=== PATIENT | male | born 1950 | race Caucasian/White ===

== ENCOUNTER 2020-08-09 18:08 | Inpatient (IN) ==
[2020-08-09] MEDS ORDERED: methylPREDNISolone 125 MG/2 ML VIAL IV STA (18:41)
[2020-08-09] MEDS ORDERED: diphenhydrAMINE Capsule 25 MG CAP PO ONE (18:41)
--- NOTE | 2020-08-09 18:41 | Emergency Department Note ---
History of Present Illness General Chief complaint: Referred by Doctor Stated complaint: yesterday monika fisher Time Seen by Provider: 08/09/20 18:16 Source: patient History of Present Illness Provider complaint: Stroke symptoms Onset (ago): hour(s) Location: eyes, lower extremity (Left only), left and right Pain Consistency: + constant Quality: + other (Loss of visual field in both eyes on the right side and weakness to the left leg now resolved) Relieved By: + none Exacerbated By: + none Associated symptoms: + headaches (Very mild); no chest pain, no cough, no fever/chills, no nausea/vomiting and no shortness of breath This is a 70-year-old male who presents with strokelike symptoms since 6:30 PM yesterday. The patient was at a gas station and when he got out of his car he noticed that his left lower leg felt floppy and weak. This only lasted about a minute and then went away. At the same time he developed issues with his memory which was also temporary but not as short lived. This morning woke up at approximately 8 AM and developed loss of vision on the right side of his visual aranda. He went to his eye doctor to evaluate for possible retinal tear and was told that he had the visual loss in both eyes on the right visual field and had no signs of a problem with his eyes or retina. He was sent here for further evaluation. He denies trouble with his speech, gait, recurrent weakness in his extremities, numbness in his extremities, difficulty swallowing or vertigo. He does have a mild headache but attributes it to the stress of the situation. He is on Plavix and aspirin for cardiac disease and cardiac stent. He has never had a stroke or TIA in the past. He denies any fever, cough or cold symptoms, known exposure to COVID-19, chest pain, shortness breath, abdominal pain, vomiting, diarrhea or urinary symptoms. Home Medications Medication Instructions Recorded Confirmed Type atorvastatin 40 mg tablet 40 mg PO HS tab 03/29/19 08/09/20 History benazepril 40 mg tablet 40 mg PO QAM tab 03/29/19 08/09/20 History metoprolol succinate 100 mg See Rx Instructions .ROUTE 03/29/19 08/09/20 History tablet,extended release 24 hr .COMPLEX tab niacin 500 mg tablet,extended 500 mg PO HS #1 tab 03/29/19 08/09/20 History release clopidogrel 75 mg tablet 75 mg PO QAM tab 05/21/19 08/09/20 History nitroglycerin 0.4 mg sublingual 0.4 mg SL Q5M PRN #25 tab 06/03/20 08/09/20 Rx tablet aspirin [Aspir-81] 81 mg PO HS 08/09/20 08/09/20 History Allergies Allergy/AdvReac Type Severity Reaction Status Date / Time Iodinated Contrast Media Allergy Intermediate Hives Verified 08/09/20 18:45 [Iodinated Contrast- Oral and IV Dye] iodine Allergy Unknown Verified 08/09/20 18:45 Penicillins AdvReac Unknown "not sure Verified 08/09/20 18:45 if he is allergic to it" Past Med/Surg History Medical History (Updated 08/09/20 @ 22:07 by Sarah Kelley DO) CAD (coronary artery disease) S/P [place] 2002 tx with one stent. S/P CABG 2007 [facility]. Gall bladder pain CURRENT ISSUE History of tachycardia Hx of small bowel obstruction NON SURGICAL INTERVENTION - 5 YR AGO Hyperlipidemia Hypertension Surgical History History of colonoscopy Hx of cardiac cath [facility] 2002; X1 STENT Hx of hand surgery RIGHT Hx of heart bypass surgery 3 VESSELS; [facility] 2007 Family History Mother Family history of diabetes mellitus Family/Other Family history of diabetes mellitus Social History Smoking Status: Never smoker Second Hand Exposure: No; Hx Alcohol Use: Yes Alcohol type: beer Hx Substance Use: No Preferred Language: Urdu Beliefs That Will Affect Care: None Current Living Situation: Spouse Feels Safe at Home: Yes Assistive Devices: Glasses Review of Systems See HPI for pertinent positives & negatives. and A total of 10 systems reviewed and were otherwise negative Physical Exam Vital Signs Vital Signs - 24 hr 08/09/20 18:09 08/09/20 19:33 08/09/20 20:44 Temperature 36.4 C L Temperature Source Temporal Artery Scan Pulse Rate 64 Pulse Rate [Apical] 70 63 Pulse Rate from SpO2 Sensor Respiratory Rate 18 14 12 Respiratory Effort / Characteristics Non-Labored Spontaneous Respiratory Depth Normal Blood Pressure 192/121 H Blood Pressure [Right Arm] 158/82 H 128/68 Blood Pressure Mean 144 Blood Pressure Mean [Right Arm] 107 88 Blood Pressure Position [Right Arm] Lying Pulse Oximetry 97 96 Oxygen Delivery Method Room Air Room Air Room Air Sepsis Recent Fever Within 48 Hours No Sepsis New/Unexplained Change in Mental Status No Sepsis Action Taken by Nursing No Action Required 08/09/20 21:30 Temperature Temperature Source Pulse Rate 63 Pulse Rate [Apical] Pulse Rate from SpO2 Sensor 62 Respiratory Rate 18 Respiratory Effort / Characteristics Respiratory Depth Blood Pressure 115/56 L Blood Pressure [Right Arm] Blood Pressure Mean 75 Blood Pressure Mean [Right Arm] Blood Pressure Position [Right Arm] Pulse Oximetry 95 Oxygen Delivery Method Room Air Sepsis Recent Fever Within 48 Hours Sepsis New/Unexplained Change in Mental Status Sepsis Action Taken by Nursing Constitutional: Vital signs reviewed. Eyes: Pupils are dilated bilaterally. Conjunctiva are noninjected. ENT: Pharynx is clear without erythema or exudate. Mucous membranes are moist. Neck supple without meningeal signs. Respiratory: Clear to auscultation bilaterally. Breath sounds are equal bilaterally. Cardiovascular: Regular rate and rhythm. No rubs or gallops. GI: Soft, nondistended and nontender. Bowel sounds are present. Musculoskeletal: No peripheral edema. No lower extremity tenderness. Integumentary: No cyanosis. or jaundice. Neurologic: The patient is awake and alert. Cranial nerves II-XII are intact, although unable to evaluate pupillary light reaction secondary to mydriasis induced by medication. Motor is 5 out of 5 all extremities. Sensation is intact to light touch all extremities. Normal speech. No pronator drift. No limb ataxia.. No dysdiadochokinesis. Normal gait. Visual aranda were tested by confrontation. He does have a right homonymous hemianopsia. Psychiatric: Normal affect. Not anxious appearing. Course Administered Medications Discontinued Medications Diphenhydramine HCl (Diphenhydramine Capsule 25 Mg Cap) 50 mg PO NOW ONE Stop: 08/09/20 18:42 Last Admin: 08/09/20 19:30 Dose: 50 mg Documented by: [id number] Ioversol (Optiray 320 125ml) 110 ml IV ONCE ONE Stop: 08/09/20 19:54 Last Admin: 08/09/20 19:55 Dose: 110 ml Documented by: [id number] Methylprednisolone (Methylprednisolone 125 Mg/2 Ml Vial) 125 mg IV NOW STA Stop: 08/09/20 18:42 Last Admin: 08/09/20 19:30 Dose: 125 mg Documented by: [id number] Medical Decision Making Differential Diagnosis TIA, stroke, intracranial mass, intracranial hemorrhage, retinal detachment Medical Records Attestation: I reviewed the patient's medical records. I did perform a limited focused review of portions of the patient's old chart on the electronic medical record. The patient has had no recent pertinent visits to this hospital. Home Medications Current Medication List: was personally reviewed by me Laboratory Data Attestation: I reviewed the patient's lab results. Result diagrams: 08/09/20 18:42 08/09/20 18:42 Lab Results 08/09/20 08/09/20 08/09/20 Range/Units 18:40 18:42 18:42 WBC 8.23 (4.8-10.8) K/uL RBC 5.14 (4.7-6.1) M/uL Hgb 17.2 (14.0-18.0) g/dL Hct 48.3 (42-52) % MCV 94.0 (80-100) fL MCH 33.5 (25-34) pg MCHC 35.6 (32-36) g/dL RDW Std Deviation 42.8 (36.4-46.3) fL RDW Coeff of Eleonora 12.4 (11.5-14.5) % Plt Count 182 (130-400) K/uL MPV 9.9 (7.4-10.4) fL Immature Gran % (Auto) 0.2 % Neut % (Auto) 78.0 % Lymph % (Auto) 14.9 % [place] % (Auto) 6.4 % Eos % (Auto) 0.4 % Baso % (Auto) 0.1 % Neut # (Auto) 6.41 (1.4-6.5) K/uL Lymph # (Auto) 1.23 (1.2-3.4) K/uL [place] # (Auto) 0.53 (0.11-0.59) K/uL Eos # (Auto) 0.03 (0-0.5) K/uL Baso # (Auto) 0.01 (0-0.2) K/uL Immature Gran # (Auto) 0.02 (0.00-0.02) K/uL PT 10.8 (9.0-12.0) Seconds INR 1.1 (0.9-1.1) APTT 23.4 (21.0-31.0) Seconds PTT Ratio 0.9 Sodium (136-145) mmol/L Potassium (3.5-5.1) mmol/L Chloride (98-107) mmol/L Carbon Dioxide (21-32) mmol/L Anion Gap (3-11) BUN (7-18) mg/dl Creatinine (0.6-1.4) mg/dl Est Cr Clr Drug Dosing ml/min Est GFR ( Amer) Est GFR (Non-Af Amer) BUN/Creatinine Ratio (10-20) Glucose (70-99) mg/dl POC Glucose 111 H (70-99) mg/dl Calcium (8.5-10.1) mg/dl Magnesium (1.8-2.4) mg/dl Total Bilirubin (0.2-1) mg/dl AST (15-37) U/L ALT (12-78) U/L Alkaline Phosphatase (45-117) U/L Troponin I (0-0.045) ng/ml Total Protein (6.4-8.2) gm/dl Albumin (3.4-5.0) gm/dl Globulin (2.5-4.0) gm/dl Albumin/Globulin Ratio (0.9-2) COVID-19 Eval Order SARS-CoV-2, RNA, NAAT (NEGATIVE) 08/09/20 08/09/20 08/09/20 Range/Units 18:42 19:45 19:45 WBC (4.8-10.8) K/uL RBC (4.7-6.1) M/uL Hgb (14.0-18.0) g/dL Hct (42-52) % MCV (80-100) fL MCH (25-34) pg MCHC (32-36) g/dL RDW Std Deviation (36.4-46.3) fL RDW Coeff of Eleonora (11.5-14.5) % Plt Count (130-400) K/uL MPV (7.4-10.4) fL Immature Gran % (Auto) % Neut % (Auto) % Lymph % (Auto) % [place] % (Auto) % Eos % (Auto) % Baso % (Auto) % Neut # (Auto) (1.4-6.5) K/uL Lymph # (Auto) (1.2-3.4) K/uL [place] # (Auto) (0.11-0.59) K/uL Eos # (Auto) (0-0.5) K/uL Baso # (Auto) (0-0.2) K/uL Immature Gran # (Auto) (0.00-0.02) K/uL PT (9.0-12.0) Seconds INR (0.9-1.1) APTT (21.0-31.0) Seconds PTT Ratio Sodium 142 (136-145) mmol/L Potassium 3.7 (3.5-5.1) mmol/L Chloride 110 H (98-107) mmol/L Carbon Dioxide 25 (21-32) mmol/L Anion Gap 7.0 (3-11) BUN 21 H (7-18) mg/dl Creatinine 1.30 (0.6-1.4) mg/dl Est Cr Clr Drug Dosing 53.6 ml/min Est GFR ( Amer) 64.5 Est GFR (Non-Af Amer) 55.7 BUN/Creatinine Ratio 16.0 (10-20) Glucose 108 H (70-99) mg/dl POC Glucose (70-99) mg/dl Calcium 9.1 (8.5-10.1) mg/dl Magnesium 2.2 (1.8-2.4) mg/dl Total Bilirubin 1.0 (0.2-1) mg/dl AST 29 (15-37) U/L ALT 40 (12-78) U/L Alkaline Phosphatase 72 (45-117) U/L Troponin I < 0.015 (0-0.045) ng/ml Total Protein 7.4 (6.4-8.2) gm/dl Albumin 4.3 (3.4-5.0) gm/dl Globulin 3.1 (2.5-4.0) gm/dl Albumin/Globulin Ratio 1.4 (0.9-2) COVID-19 Eval [facility] SARS-CoV-2, RNA, NAAT NEGATIVE (NEGATIVE) Imaging Data Radiologist's Impression: Preliminary Findings Only See Final Report For Complete Findings CT HEAD: Impression: There is acute infarct seen in the left occipital lobe, measuring up to 5.6 cm in length. No intracranial hemorrhage. Radiologist: Brice Wise MD Study ready at 20:15 and initial results transmitted at 20:17 Preliminary Findings Only See Final Report For Complete Findings CTA NECK: Impression: No acute arterial occlusion seen in the neck Severe C6/7 chronic degenerative disc disease. Radiologist: Brice Wise MD Study ready at 20:15 and initial results transmitted at 20:22 Preliminary Findings Only See Final Report For Complete Findings CTA HEAD: The posterior cerebral arteries are patent. No acute intracranial arterial occlusion. ECG Data Attestation: I personally reviewed and interpreted this ECG as follows: Indication: + other (Stroke symptoms) Rate (beats per minute): 68 Rhythm: + normal sinus ECG Bells: + Normal ECG ST segments: no T-wave inversions ECG Findings: no PVCs MDM Narrative I did evaluate the patient as noted above. The patient is presenting with strokelike symptoms. Yesterday he had weakness to the left lower leg. Today he woke up with a homonymous hemianopsia involving the right visual field. He is outside the window for IV TPA and so I did not call a stroke alert. IV access was established. I did place an order for continuous cardiac monitoring. The monitor showed normal sinus rhythm at a rate of 70 bpm. I did order and personally review the patient's 12-lead EKG as described above. There is no evidence of dysrhythmia or acute ischemia. I did order and review the patient's blood work as noted in the electronic medical record. His white blood cell count is within normal limits. Hemoglobin 17.2 platelets are 182. Electrolytes are unremarkable other than a chloride of 110. LFTs and troponin are within normal limits. I did premedicate the patient with IV Solu-Medrol and Benadryl. The patient has a allergy to IVP dye years ago. He understands the risk of allergic reaction and is agreeable after discussion of risks and benefits with him. I did order a CT of the head and CT angiogram of the head and neck. I did review the images myself as well as the radiology report as described above.CT angiogram of the head and neck does not show any evidence of acute arterial occlusion.He does have an acute infarct in the left occipital lobe measuring 5.6 cm. No intracranial hemorrhage. I did discuss the test results with the patient. He has no change in his symptoms. It is unclear what caused the transient "floppiness "of the left leg yesterday as he has no signs of right-sided infarct. He will be hospitalized for further care and evaluation. The case was discussed with the case consultant and the hospitalist. COVID-19 screening is negative. Impression & Plan Acute cerebrovascular accident (CVA), Homonymous hemianopsia due to recent cerebral infarction Discharge Plan Visit Data Chief Complaint: Referred by Doctor Stated Complaint: yesterday [facility] ED Provider: Dhiraj Boland Discharge Problem: Acute cerebrovascular accident (CVA), Homonymous hemianopsia due to recent cerebral infarction Patient Disposition: Admitted As Inpatient Discharge Instructions Interventions: ED Discharge Assessment Last Done: 08/09/20 22:24 Discharge Problem: Homonymous hemianopsia due to recent cerebral infarction Qualifiers: Laterality: right Qualified Code(s): I69.398 - Other sequelae of cerebral infarction
[2020-08-09 18:55] LABS: Basophils # (auto) 0.01 K/uL (0-0.2); Basophils % (auto) 0.1 %; Eosinophils # (auto) 0.03 K/uL (0-0.5); Eosinophils % (auto) 0.4 %; Hematocrit (blood only) 48.3 % (42-52); Hemoglobin 17.2 g/dL (14.0-18.0); Immature Granulocytes # (auto) 0.02 K/uL (0.00-0.02); Immature Granulocytes % (auto) 0.2 %; Lymphocytes # (auto) 1.23 K/uL (1.2-3.4); Lymphocytes % (auto) 14.9 %; Mean Corpuscular Hemoglobin 33.5 pg (25-34); Mean Corpuscular Hgb Conc 35.6 g/dL (32-36); Mean Platelet Volume 9.9 fL (7.4-10.4); Monocytes # (auto) 0.53 K/uL (0.11-0.59); Monocytes % (auto) 6.4 %; Neutrophils # (auto) 6.41 K/uL (1.4-6.5); Platelet Count 182 K/uL (130-400); RDW Coefficient of Variation 12.4 % (11.5-14.5); RDW Standard Deviation 42.8 fL (36.4-46.3); Red Blood Count 5.14 M/uL (4.7-6.1); White Blood Count 8.23 K/uL (4.8-10.8)
[2020-08-09 19:05] LABS: INR 1.1 (0.9-1.1); Partial Thromboplastin Ratio 0.9; Partial Thromboplastin Time 23.4 Seconds (21.0-31.0); Prothrombin Time 10.8 Seconds (9.0-12.0)
[2020-08-09 19:13] LABS: Alanine Aminotransferase 40 U/L (12-78); Albumin Level 4.3 gm/dl (3.4-5.0); Aspartate Aminotransferase 29 U/L (15-37); Blood Urea Nitrogen 21 mg/dl (7-18); Calcium 9.1 mg/dl (8.5-10.1); Carbon Dioxide 25 mmol/L (21-32); Chloride 110 mmol/L (98-107); Creatinine Clr Calc Pharmacy 53.6 ml/min; Est GFR (African American) 64.5; Est GFR (Non-African American) 55.7; Glucose 108 mg/dl (70-99); Magnesium 2.2 mg/dl (1.8-2.4); Potassium 3.7 mmol/L (3.5-5.1); Sodium 142 mmol/L (136-145)
[2020-08-09 19:18] LABS: Albumin Globulin Ratio 1.4 (0.9-2); Alkaline Phosphatase 72 U/L (45-117); Globulin 3.1 gm/dl (2.5-4.0); Total Protein 7.4 gm/dl (6.4-8.2); Troponin I < 0.015 ng/ml (0-0.045)
[2020-08-09] MEDS ORDERED: OPTIRAY 320 125ml IV ONE (19:53)
--- NOTE | 2020-08-09 22:08 | History & Physical Report ---
Date of Service August 09, 2020 Assessment & Plan (1) Acute cerebrovascular accident (CVA): 70 yo M PMHx HTN, HLD, CAD s/p CABG 2007 admitted for acute occipital region CVA without TPA administration. Acute left occipital CVA with residual right homonymous hemianopsia: Patient with acute CVA with symptoms starting at 630PM on 08/08. Did not qualify for TPA due to length of time from symptom onset. CT Head showed acute left occipital infarct measuring 5.6cm. CTA Head and Neck did not show acute findings/blockage that would account for CVA. 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 MRI Brain w/o contrast ordered for AM. Lipid panel, Hgb A1c, TTE in AM. Patient not having any difficulty swallowing so Heart Healthy diet okay to start now. Atorvastatin 80mg daily, continue DAPT. Allow for permissive HTN, goal BP <185/110 with labetalol 10mg IV q6h prn. Neuro consult placed. Telemetry for continuous cardiac monitoring and frequent Neuro checks. Unclear cause of description of transient left limb weakness/memory difficulties at 630PM on 08/08, no findings on CT/CTA imaging that would account for those symptoms. Hx contrast dye allergy: Has a history of contrast dye allergy causing hives. Patient was pre-medicated with methylprednisolone 125mg IV, Benadryl prior to CT imaging. Methylpred 125mg x1 for 12 hours post-imaging. Pepcid for H2 blockade. HTN: Allowing for permissive HTN given CVA. Hold home benazepril. Labetalol 10mg q6h prn BP > 185/110. HLD: Previously on atorvastatin 40mg daily. Transition to atorvastatin 80mg daily. CAD s/p CABG: Continue DAPT, high intensity statin. Benazepril and metoprolol held for permissive HTN, resume when able. Code Status: FULL CODE FEN/GI: Heart Healthy DVT ppx: hold chemoprophylaxis given risk of hemorrhagic conversion. SCDs Dispo: PCU for continous cardiac monitoring, frequent Neuro checks (2) Right homonymous hemianopsia due to recent cerebral infarction: (3) Hypertension: (4) Hyperlipidemia: (5) CAD (coronary artery disease): History of Present Illness Chief Complaint: right sided vision loss Primary Care Provider: Guille Jane, 70 yo M PMHx HTN, HLD, CAD s/p CABG 2007 presented to ED for evaluation of right sided vision loss in both eyes. Symptoms started at 6:30PM 08/08 with description of transient memory issues and left leg "floppy" sensation. Went away after a few minutes. This AM woke up at 8AM with right visual field los in both eyes. Was seen by [employer] today and was urged to come to ER for further evaluation. In the ER evaluation included CT Head, CTA Head/Neck which showed left occipital lobe infarct. CTA showed patent vasculature of the head and neck. COVID 19 negative. Hyperglycemia to 110. On my interview patient reports no chest pain, SOB, nausea, dizziness, headache, abdominal pain, recent fevers or chills. Reports no difficulty swallowing, no limb weakness. Patient does not have a history of smoking. Allergies Allergy/AdvReac Type Severity Reaction Status Date / Time Iodinated Contrast Media Allergy Intermediate Hives Verified 08/09/20 18:45 [Iodinated Contrast- Oral and IV Dye] iodine Allergy Unknown Verified 08/09/20 18:45 Penicillins AdvReac Unknown "not sure Verified 08/09/20 18:45 if he is allergic to it" Home Medications Medication Instructions Recorded Confirmed Type atorvastatin 40 mg tablet 40 mg PO HS tab 03/29/19 08/09/20 History benazepril 40 mg tablet 40 mg PO QAM tab 03/29/19 08/09/20 History metoprolol succinate 100 mg See Rx Instructions .ROUTE 03/29/19 08/09/20 History tablet,extended release 24 hr .COMPLEX tab niacin 500 mg tablet,extended 500 mg PO HS #1 tab 03/29/19 08/09/20 History release clopidogrel 75 mg tablet 75 mg PO QAM tab 05/21/19 08/09/20 History nitroglycerin 0.4 mg sublingual 0.4 mg SL Q5M PRN #25 tab 06/03/20 08/09/20 Rx tablet aspirin 81 mg PO HS 08/09/20 08/09/20 History Past Med/Surg History Medical History (Updated 08/11/20 @ 00:04 by Background Daemon) CAD (coronary artery disease) S/P [place] tx with one stent. S/P CABG 2007 [facility]. 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 Hx of small bowel obstruction NON SURGICAL INTERVENTION - 5 YR AGO Hyperlipidemia Hypertension Surgical History History of colonoscopy Hx of cardiac cath [facility] 2002; X1 STENT Hx of hand surgery RIGHT Hx of heart bypass surgery 3 VESSELS; [facility] 2007 Family History Mother , in her 90s of heart disease Family history of diabetes mellitus Heart disease Family/Other Family history of diabetes mellitus Father , age 85 of complications of hydrocephalus Diabetes Social History (Updated 08/10/20 @ 11:11 by Henrry Ray MD) Smoking Status: Former smoker Years Smoked: 2; Number of Years Since Quit: 45; Second Hand Exposure: No; Hx Alcohol Use: Yes Alcohol type: beer Alcohol Intake Frequency Comment: 1-2 beers per week Hx Substance Use: No Preferred Language: Polish Communication Ability: Effective Moisture Conditioner Operator Required: No Beliefs That Will Affect Care: None Current Living Situation: Spouse current occupational status: employed 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 Feels Safe at Home: Yes Assistive Devices: Glasses Review of Systems Review of Systems: All systems reviewed & are unremarkable except as noted in HPI & below Constitutional: no fever, no chills and no malaise Respiratory: no cough and no dyspnea Cardiovascular: no chest pain, no palpitations and no edema Gastrointestinal: no abdominal pain, no constipation and no diarrhea/loose stools Physical Exam Constitutional: WD/WN, vitals as above Eyes: PERRL, exam notable for right homonymous hemianopia. ENMT: external ear and nose normal, oropharynx normal Neck: normal visual inspection Respiratory: normal respiratory effort, lungs clear to auscultation Cardiovascular: RRR, no murmur, no edema Gastrointestinal (Abdomen): normal bowel sounds, soft, nontender, no hepatosplenomegaly Musculoskeletal: no cyanosis or clubbing, extremities motor strength 5/5 Skin: no rashes, warm and dry Neurologic: AAOx3, normal speech. PERRLA, no nystagmus. Right homonymous hemianopia. Bilateral UE, LE, and face without sensory or motor deficits. DTRs normal. II- XII intact bilaterally. No pronator drift. No tremor. Psychiatric: A+Ox3, euthymic affect Results & Data Results & Data ([facility]) Vital Signs (Past 12 Hours) Vital Signs Temp Pulse Pulse Resp BP BP Pulse Ox 08/09/20 21:30 63 18 115/56 L 95 08/09/20 20:44 63 12 128/68 96 08/09/20 19:33 70 14 158/82 H 08/09/20 18:09 36.4 C L 64 18 192/121 H 97 Code Status & VTE Plan VTE Prophylaxis Plan VTE Prophylaxis will be ordered: Yes Supervising Physician Co-Signing Physician Notes Attending addendum: I have physically seen this patient, have supervised the medical residents activities, and agree with the H&P unless as otherwise noted. Assessment and Plan: Acute left occipital CVA/right homonymous hemianopsia- CTA head and neck negative Order MRI brain without contrast Stroke without TPA protocol order set Patient did reportedly have transient left leg weakness Consult PT/OT/speech/neurology Permissive hypertension Hyperlipidemia- Increasing atorvastatin from 40 to 80 mg daily Check a fasting lipid panel hemoglobin A1c CAD/status post CABG- Continue aspirin, benazepril, clopidogrel, metoprolol succinate and nitroglycerin sublingual as needed Remaining orders and notations as noted Resident Activity Tracking Resident Involvement: Resident Care Provided Care Provided: Adult Hospital Medicine
[2020-08-09] MEDS ORDERED: LABETALOL HCL IV 5 MG/ML 20ML IV PRN (22:25)
[2020-08-09] MEDS ORDERED: ONDANSETRON INJ 2 MG/ML 2 ML VIAL IV PRN (22:49)
[2020-08-09] MEDS ORDERED: PHARMACIST DISCHARGE MED REC CONSULT PRN (22:49)
[2020-08-09] MEDS ORDERED: FAMOTIDINE 20 MG TAB PO ONE (22:49)
[2020-08-09] MEDS ORDERED: NITROGLYCERIN SL 0.4 MG/TAB TAB SL PRN (22:49)
[2020-08-09] MEDS ORDERED: ACETAMINOPHEN 325 MG TAB PO PRN (22:49)
[2020-08-09] MEDS ORDERED: POLYETHYLENE (MIRALAX) 17 GM PACK PO PRN (22:49)
[2020-08-09] MEDS ORDERED: METOPROLOL SUCC 50MG EXT REL TAB PO SCH (23:00)
[2020-08-09] MEDS ORDERED: methylPREDNISolone 125 MG in SYRINGE 0 ML IV ONE (23:00)
--- NOTE | 2020-08-10 07:01 | Hospitalist Progress Note ---
Date of Service August 10, 2020 Assessment & Plan (1) Acute cerebrovascular accident (CVA): 70 yo M PMHx HTN, HLD, CAD s/p CABG 2007 admitted for acute occipital region CVA without TPA administration. Acute left occipital CVA with residual right homonymous hemianopsia: Patient with acute CVA with symptoms starting at 630PM on 08/08. Did not qualify for TPA due to length of time from symptom onset. CT Head showed acute left occipital infarct measuring 5.6cm. CTA Head and Neck did not show acute findings/blockage that would account for CVA. Bilateral SUPERVISOR CALIBRATION are patent per [employer]. MRI Brain w/o contrast ordered for AM. Lipid panel, Hgb A1c, TTE in AM. Patient not having any difficulty swallowing so Heart Healthy diet okay to start now. Atorvastatin 80mg daily, continue DAPT. Allow for permissive HTN, goal BP <185/110 with labetalol 10mg IV q6h prn. Neuro consult placed. Telemetry for continuous cardiac monitoring and frequent Neuro checks. Unclear cause of description of transient left limb weakness/memory difficulties at 630PM on 08/08, no findings on CT/CTA imaging that would account for those symptoms. Hx contrast dye allergy: Has a history of contrast dye allergy causing hives. Patient was pre-medicated with methylprednisolone 125mg IV, Benadryl prior to CT imaging. Methylpred 125mg x1 for 12 hours post-imaging. Pepcid for H2 blockade. HTN: Allowing for permissive HTN given CVA. Hold home benazepril. Labetalol 10mg q6h prn BP > 185/110. HLD: Previously on atorvastatin 40mg daily. Transition to atorvastatin 80mg daily. CAD s/p CABG: Continue DAPT, high intensity statin. Benazepril and metoprolol held for permissive HTN, resume when able. Code Status: FULL CODE FEN/GI: Heart Healthy DVT ppx: hold chemoprophylaxis given risk of hemorrhagic conversion. SCDs Dispo: PCU for continous cardiac monitoring, frequent Neuro checks (2) Right homonymous hemianopsia due to recent cerebral infarction: (3) Hypertension: (4) Hyperlipidemia: (5) CAD (coronary artery disease): Admission and Anticipated Discharge Date Admission Date: August 09, 2020 Results & Data Results & Data ([facility]) Vital Signs (Past 12 Hours) Vital Signs Temp Pulse Pulse Resp BP BP BP 08/10/20 03:59 36.9 C 59 L 16 124/70 08/09/20 22:54 37.2 C 59 L 17 130/72 08/09/20 22:49 68 08/09/20 22:00 67 19 125/59 L 08/09/20 21:30 63 18 115/56 L 08/09/20 20:44 63 12 128/68 08/09/20 19:33 70 14 158/82 H Pulse Ox 08/10/20 03:59 96 08/09/20 22:54 96 08/09/20 22:49 08/09/20 22:00 94 08/09/20 21:30 95 08/09/20 20:44 96 08/09/20 19:33
[2020-08-10 07:13] LABS: Hematocrit (blood only) 47.6 % (42-52); Hemoglobin 16.8 g/dL (14.0-18.0); Immature Granulocytes # (auto) 0.02 K/uL (0.00-0.02); Immature Granulocytes % (auto) 0.3 %; Lymphocytes # (auto) 0.36 K/uL (1.2-3.4); Lymphocytes % (auto) 5.3 %; Mean Corpuscular Hemoglobin 33.1 pg (25-34); Mean Corpuscular Hgb Conc 35.3 g/dL (32-36); Mean Corpuscular Volume 93.9 fL (80-100); Mean Platelet Volume 10.1 fL (7.4-10.4); Monocytes # (auto) 0.02 K/uL (0.11-0.59); Monocytes % (auto) 0.3 %; Neutrophils # (auto) 6.35 K/uL (1.4-6.5); Neutrophils % (auto) 94.1 %; Platelet Count 167 K/uL (130-400); RDW Coefficient of Variation 12.5 % (11.5-14.5); RDW Standard Deviation 42.7 fL (36.4-46.3); Red Blood Count 5.07 M/uL (4.7-6.1); White Blood Count 6.75 K/uL (4.8-10.8)
[2020-08-10 07:25] LABS: INR 1.1 (0.9-1.1); Prothrombin Time 10.9 Seconds (9.0-12.0)
[2020-08-10] MEDS ORDERED: methylPREDNISolone 125 MG/2 ML VIAL IV ONE (07:30)
[2020-08-10 07:35] LABS: BUN Creatinine Ratio 15.7 (10-20); Calcium 9.5 mg/dl (8.5-10.1); Creatinine Clr Calc Pharmacy 57.1 ml/min; Est GFR (African American) 69.7; Est GFR (Non-African American) 60.1; Potassium 4.4 mmol/L (3.5-5.1)
--- NOTE | 2020-08-10 07:56 | CT Scan Report ---
HEAD CT NONCONTRAST CT DOSE: HISTORY: hononymous hemianopsia (right VF) eval for stroke TECHNIQUE: Multiaxial CT images of the head were performed without the use of intravenous contrast. A utomated exposure control was utilized for this study. A dose lowering technique was utilized adheri ng to the principles of ALARA. Comparison: None. Findings: The paranasal sinuses and mastoid air cells are clear. The calvarium and skull base are int act. Left occipital lobe infarct measuring 5.6 cm in length. This is consistent with a LABORATORY IMMUNOLOGIST territory infarct. This appears to represent an acute to subacute infarct. Impression: An acute to subacute left LABORATORY IMMUNOLOGIST territory infarct. ACT 112: Negative or not required by law. Electronically signed by: David Martel M.D. 08/10/2020 7:55 AM
--- NOTE | 2020-08-10 08:10 | XCELERA ---
[id number] \\[email or web address]\[id number]_[id number]
--- NOTE | 2020-08-10 08:26 | CT Scan Report ---
CT angio neck with con, CT angio head w con CLINICAL HISTORY: 70 years-old Male with hononymous hemianopsia (right VF) eval for stroke. Acute subacute infarct of the left LOGISTICS SPECIALIST territory COMPARISON STUDY: Head CT of same day TECHNIQUE: Following the IV administration of 110 mL of Optiray 320, CT angiogram of the head and nec k was performed from the aortic arch to the skull apex. Images are reviewed in the axial, sagittal, a nd coronal planes. 3-D MIPS images are created and assessed. IV contrast was administered without com plication. All measurements were calculated based on NASCET criteria. A dose lowering technique was utilized adhering to the principles of ALARA. CT DOSE: 1211.32 mGy.cm FINDINGS: The imaged opacified pulmonary arterial tree is unremarkable. Atheromatous plaque of the th oracic aortic arch. Patency of the innominate and imaged subclavian arteries. Patent common carotid a rteries. Mixed plaque of the carotid bulbs and proximal internal carotid arteries results in less trina n 50% luminal narrowing bilaterally. Calcified plaque of the petrous and cavernous segments. The midd le and anterior cerebral arteries are patent. Codominant and patent vertebral arteries. Mild calcifie d plaque at the origin of the right vertebral artery. The basilar and right posterior cerebral arteri es are patent. There is occlusion at the origin of the left P2 segment, image 90 series 5. No venous sinuses are patent. Acute to subacute infarct of the left posterior cerebral artery territory. Prior median sternotomy. No pneumothorax. Unremarkable soft tissues. IMPRESSION: 1. Acute to subacute infarct of the left posterior cerebral artery territory with focal occlusion at the origin of the left P2 segment of the left posterior cerebral artery. This finding was called/faxe d to the floor at time of dictation. 2. Otherwise unremarkable CTA of the head and neck. ACT 112: Negative or not required by law. The above report was generated using voice recognition software. It may contain grammatical, syntax o r spelling errors. Electronically signed by: Mauricio Adamson M.D. 08/10/2020 8:24 AM
[2020-08-10] MEDS ORDERED: METOPROLOL SUCC 50MG EXT REL TAB PO SCH (09:00)
[2020-08-10] MEDS ORDERED: CLOPIDOGREL BISULFATE 75 MG TAB PO SCH (09:00)
[2020-08-10] MEDS ORDERED: ATORVASTATIN 40 MG TAB PO SCH (09:00)
--- NOTE | 2020-08-10 10:06 | Magnetic Resonance Report ---
MR brain wo con HISTORY: 70 years-old Male CVA acute strokelike symptoms COMPARISON: Head CT, CTA head and neck of same day TECHNIQUE: Multiplanar multisequence MRI of the brain was obtained without the use of IV contrast. FINDINGS: Acute infarct of the left posterior cerebral artery distribution within the left occipital and medial left temporal lobe redemonstrated which measures up to approximately 7.1 x 2.8 cm with decreased sig nal on ADC map and T1 series demonstrating increased T2/FLAIR signal. Cytotoxic edema results in loca l gyral expansion with sulcal effacement. No additional acute or subacute infarct. Senescent calcifications of the lentiform nuclei. No acute intracranial hemorrhage, midline shift, ab normal extra axial collection, hydrocephalus or intracranial mass identified. Mild patchy T2/FLAIR hy perintensities are noted within the subcortical white matter of the bilateral cerebral hemispheres, m ost pronounced posteriorly which may reflect chronic microvascular ischemic disease. Cerebral venous sinuses and major arterial flow voids appear patent. Mastoid air cells and paranasal sinuses are clear. The skull and soft tissues are unremarkable. Prior bilateral lens replacement. IMPRESSION: 1. Acute infarct (greater than 12 hours old) of the left posterior cerebral artery distribution with cytotoxic edema resulting in local gyral expansion and sulcal effacement. 2. No midline shift or intracranial hemorrhage. ACT 112: Negative or not required by law. The above report was generated using voice recognition software. It may contain grammatical, syntax o r spelling errors. Electronically signed by: Mauricio Adamson M.D. 08/10/2020 10:04 AM
--- NOTE | 2020-08-10 11:05 | Discharge Summary ---
Date of Service August 10, 2020 Admission HPI Per Admitting Provider 70 yo M PMHx HTN, HLD, CAD s/p CABG 2007 presented to ED for evaluation of right sided vision loss in both eyes. Symptoms started at 6:30PM 08/08 with description of transient memory issues and left leg "floppy" sensation. Went away after a few minutes. This AM woke up at 8AM with right visual field los in both eyes. Was seen by Funeral Arranger today and was urged to come to ER for further evaluation. In the ER evaluation included CT Head, CTA Head/Neck which showed left occipital lobe infarct. CTA showed patent vasculature of the head and neck. COVID 19 negative. Hyperglycemia to 110. On my interview patient reports no chest pain, SOB, nausea, dizziness, headache, abdominal pain, recent fevers or chills. Reports no difficulty swallowing, no limb weakness. Patient does not have a history of smoking. Admission Exam Per Admitting Provider Constitutional: WD/WN, vitals as above Eyes: PERRL, exam notable for right homonymous hemianopia. ENMT: external ear and nose normal, oropharynx normal Neck: normal visual inspection Respiratory: normal respiratory effort, lungs clear to auscultation Cardiovascular: RRR, no murmur, no edema Gastrointestinal (Abdomen): normal bowel sounds, soft, nontender, no hepatosplenomegaly Musculoskeletal: no cyanosis or clubbing, extremities motor strength 5/5 Skin: no rashes, warm and dry Neurologic: AAOx3, normal speech. PERRLA, no nystagmus. Right homonymous hemianopia. Bilateral UE, LE, and face without sensory or motor deficits. DTRs normal. II- XII intact bilaterally. No pronator drift. No tremor. Psychiatric: A+Ox3, euthymic affect Principal Diagnosis CVA Discharge Exam Constitutional WD/WN, vitals as above Eyes EOM intact bilaterally; no nystagmus right homonymous hemianopia Respiratory normal respiratory effort, lungs clear to auscultation Cardiovascular RRR, no murmur, no edema Gastrointestinal (Abdomen) normal bowel sounds, soft, nontender, no hepatosplenomegaly Musculoskeletal no cyanosis or clubbing, extremities motor strength 5/5 Skin no rashes, warm and dry Neurologic patellar DTR's 2+ bilat, sensation intact normal touch/pain/proprioception Coordination: normal [id number] test and normal Romberg test right homonymous hemianopia with preserved visual acuity, CNII-XII otherwise normal Discharge Data Allergies Allergy/AdvReac Type Severity Reaction Status Date / Time Iodinated Contrast Media Allergy Intermediate Hives Verified 08/09/20 18:45 [Iodinated Contrast- Oral and IV Dye] iodine Allergy Unknown Verified 08/09/20 18:45 Penicillins AdvReac Unknown "not sure Verified 08/09/20 18:45 if he is allergic to it" Consultations 08/09/20 20:34 ED Decision to Admit Stat 08/09/20 22:49 Consult Case Management - Discharge Planning Routine Consult Neurology Routine Ordered Studies 08/09/20 18:33 CT angio head w con Stat CT angio neck with con Stat CT head/brain wo con Stat 08/10/20 22:49 MR brain wo con Routine Hospital Course (1) Acute cerebrovascular accident (CVA): 70 yo M PMHx HTN, HLD, CAD s/p CABG 2007 admitted for acute occipital region CVA without TPA administration. Acute left occipital CVA with residual right homonymous hemianopsia: - right homonymous hemianopia with preserved visual acuity and otherwise non- focal neuro exam, symptoms persistent >24 hours, CT Head/CTA Head/CTA Neck/MRI brain showing L MOVING CONSULTANT distribution acute infarct w/o hemorrhage - Did not qualify for TPA due to length of time from symptom onset. - Lipid panel WNL, TTE w/o evidence for cardioembolic source - Neuro consulted: recommends close f/u and continuing with home DAPT regimen - continue Atorvastatin 40mg daily, continue DAPT (Aspirin/Plavix) - f/u with PCP, Ophthalmology and Neurology HTN: - BPs controlled while hospitalized w/o need for PRNs, continue home meds HLD: - Continue home Atorvastatin 40mg PO daily as above CAD s/p CABG: - Continue home DAPT, high intensity statin, benazepril, metoprolol (2) Right homonymous hemianopsia due to recent cerebral infarction: (3) Hypertension: (4) Hyperlipidemia: (5) CAD (coronary artery disease): Total Time Total Time Spent Total Time Spent (In Minutes): Less than 30 minutes Total Time Includes: Examination of the Patient, Discharge Planning, Medication Reconciliation and Communication With Other Providers Discharge Plan Discharge Items Patient Disposition: Home - Self-Care Reason For Visit: ACUTE CVA Discharge Diagnosis: Acute Left Occipital CVA Activity: Per Instructions section Non-emergency contact: Primary Care Provider and Neurologist Call non-emergency contact if: you have any medication questions and your symptoms worsen Follow-up/Referrals: Henrry Ray MD [Physician] - Guille Jane DO [Primary Care Provider] - Diet: Heart Healthy Addtl Attending Provider Instructions: You were admitted to [facility] on 08/09/2020 for acut right- sided vision loss due to a stroke. You had an extensive imaging evaluation of your head, neck and heart, which confirmed the stroke in the back of your brain; based on imaging, this stroke was due to a clot that blocked blood flow to the back of your brain. Our Neurologist was consulted and spoke more about this diagnosis with you. You will be discharged in stable condition on 08/10/2020. You should continue to take all of your scheduled medications. You should also follow up closely with a Neurologist to monitor your visual symptoms - while there is a chance that these symptoms will improve over time, it is too early to tell the chance of improvement at this point in time. As for the anxiety that you mentioned to us, we recommend that you follow up closely with your PCP to discuss further management of this. We sincerely hope that you experience significant improvement in your symptoms. It was a pleasure to help provide your care while you were hospitalized. [employer]nament[employer] Helper Provider Instructions: Risk Factors for Stroke: You can reduce your chances of stroke by working with your medical provider to adopt a healthy lifestyle. Some specific ways to lower your chance of stroke are: * If you are a smoker, now is the time to stop smoking cigarettes * If you are diabetic, improve the control of your blood sugars * Avoid excessive amounts of alcohol * Control high blood pressure * Lose weight if you are overweight * Be sure to lead an active lifestyle * Eat a healthy diet low in salt, cholesterol and fat You should know about other risk factors for stroke that you are unable to control. These include: * Age 55 years or older * Male gender * Certain racial groups: , or / * Family History of Stroke, Mini stroke or Heart Attack * Sickle Cell Disease Follow Up: It is important for you to keep your follow up appointments with your medical provider. Who to Call and When: Medical Emergencies: Call 911 immediately if you experience any of the following warning signs and symptoms of Stroke: * Sudden numbness or weakness of the face, arm or leg, especially on one side of the body * Sudden confusion, trouble speaking or understanding * Sudden trouble seeing in one or both eyes * Sudden trouble walking, dizziness, loss of balance or coordination * Sudden severe headache with no cause Do not delay calling 911 if you experience any warning signs or symptoms of a stroke. Delay in seeking medical attention may affect what treatments can be given to you. . Pending Studies at Discharge: No Stand-Alone Forms: Medications to Prevent Stroke, My [facility], Smoking Cessation Medications and DC Order Prescriptions: Continued nitroglycerin 0.4 mg tablet, sublingual 0.4 mg SL Q5M PRN (Reason: chest pain) Qty: 25 RF: 0 atorvastatin 40 mg tablet 40 mg PO HS RF: 0 niacin 500 mg tablet extended release 500 mg PO HS Qty: 1 RF: 0 benazepril 40 mg tablet 40 mg PO QAM RF: 0 metoprolol succinate 100 mg tablet extended release 24 hr See Rx Instructions .ROUTE .COMPLEX RF: 0 clopidogrel 75 mg tablet 75 mg PO QAM RF: 0 aspirin 81 mg Tablet,Delayed Release (Dr/Ec) 81 mg PO HS RF: 0 Discharge Orders: Discharge Order (Routine); Ordered 08/10/20 Ordered By: Aries Mosqueda Admission Data Admit Date/Time: 08/09/20 21:52 Attending Provider: Odell Wilson Admit Provider: Sarah Kelley Primary Care Provider: Guille Jnae Other Providers: Narinder Salmeron ; Henrry Ray Other Interventions: Discharge Summary Assessment (RN) Last Done: 08/10/20 14:25 Supervising Physician Co-Signing Physician Notes I personally examined the patient and verified all cortes points of history and exam, discussed case, and agree with decision making with Dr Mosqueda. Feeling about the same. Still has visual field deficits. Otherwise feeling okay and wants to go home. Discussed with neurology, input greatly appreciated. Vitals noted, in general he is awake and alert pleasant no distress. HEENT normocephalic atraumatic mucous membranes moist. Breathing unlabored no accessory muscle use good effort. Skin shows no rashes no pallor or icterus. See neurology exam for better detail on neuro deficits, fortunately he does not show things like a facial droop or motor or sensory weakness otherwise. Occipital CVAwith visual field defectsreally unfortunately he does not have any major changes we can make to modify risk. He has longstanding vascular disease and unfortunately I suspect that his MOVING CONSULTANT thrombosis was probably plaque rupture from a plaque that has been there longstanding. He is already on dual antiplatelets for his coronary disease, he is already on atorvastatin 40 with lipids adequately suppressed, and his blood pressures overall have been acceptable given the context of a stroke, and it does not sound like he is really running high otherwise either. Further in discussion of lifestyle that can be secondary risk reduction for vascular disease, as we discussed a Mediterranean diet and daily cardiovascular exercise, he notes that he would be "doing more of the same" suggesting he already eats pretty healthy and exercise regularly. He should have ongoing follow-up with his eye doctor as far as his visual field deficits, as well as ocular therapy if his eye doctor can facilitate if not certainly doing therapy through occupational therapy would likely be quite helpful. I also discussed "poor man's therapy" on how to try to work on his blind spots, which may help create new neural pathways, and at the very least would help him become keenly aware of where the blind spots are. Stable for home Otherwise as above. Resident Activity Tracking Resident Involvement: Resident Care Provided Care Provided: Adult Hospital Medicine
--- NOTE | 2020-08-10 11:19 | Neurology Consultation ---
Date of Consultation August 10, 2020 Assessment & Plan (1) Acute cerebrovascular accident (CVA): (2) Right homonymous hemianopsia due to recent cerebral infarction: (3) Hypertension: This patient suffered a left posterior cerebral artery (P2 segment) stroke of a rather large nature in the evening of August 08. Clinically he has some nonspecific memory issues ( which have improved) and a very significant /dense right homonymous hemianopsia. This stroke happened despite being on aspirin and Plavix and was likely ischemic in nature. Echocardiogram did not show any source of embolus and CT angiography of the head neck were otherwise unremarkable. Patient was significantly hyp ertensive on presentation to the emergency room but this has improved since admission. Recommendations: 1. Control blood pressure as you are doing, aiming for a mean arterial pressure of 95-100. 2. the patient's lipid parameters are quite controlled and I would continue him on the same dose of atorvastatin ( not a high dose candidate at this time). 3. increase activity as able. 4. Follow up with Ophthalmology as an outpatient. 5. continue 75 milligrams clopidogrel and 81 milligrams aspirin daily. 6. follow-up with Neurology in 2-3 weeks. Overall, I spent a total of 115 minutes with this case including review of records, review of CT and MRI films, direct evaluation the patient at bedside, and discussion of the case with the patient and RN at bedside and Dr. Wilson including differential diagnosis and treatment options. History of Present Illness Reason for Consultation: patient is a 70-year-old, who I was asked to see at the request of Dr. Sullivan, for neurologic consultation regarding stroke. Requesting Physician: Dr. Sullivan Attending Physician: Odell Wilson DO History of Present Illness this patient has a longstanding history of coronary artery disease, post stenting in 2002 and a 3 vessel coronary artery bypass graft in 2007. He is followed closely by Dr. Freire and has been on aspirin and Plavix for years. He has a history of hypertension on metoprolol and benazepril, and dyslipidemia on atorvastatin. he takes his medication regularly. The patient exercises regularly with walking. Patient was in his usual state of health when on the evening of August 08 around 6:30 p.m. he got out of the car at the [employer] to check his tires and noticed that his left leg was not controlled well from the knee down. It was somewhat weak and not responding to his direction but he did not fall. He felt the proximal leg was reasonable. He went in and sat back down in the car and felt that it lasted about 45 seconds. He had a little bit of double vision around that time for a minute or so also. He felt like he was "in a fog" but ended up driving home and going to bed at 7 p.m.. He woke up at 8 a.m. on August 09 and noted that he had some memory issues with names and he could not see well off to the right. Thinking that he had a detached retina ( like other family members have had ) he saw Dr. Mccain, who told him that he did not think there was any retinal issue and that he should go to the emergency room. Patient arrived to the emergency room August 09 at 1809 with a temperature of 36.4, pulse 60s and regular, respiratory 18, blood pressure 192/121, and O2 saturation 97 percent. Neurologic examination revealed decreased vision to the right. CBC and Chem profile were unremarkable. CT scan of the head showed an acute large left occipital CVA. I reviewed these films. CT angiography of the head and neck were unremarkable except there was a cutoff in the left P2 segment of the left posterior cerebral artery. MRI of the brain shows a rather large left posterior cerebral artery distribution stroke in the medial temporal and occipital head regions. The occipital pole was spared. I reviewed these films. The patient does not have any memory problems today and has no pain or headache. He has no double vision or speech problems. He has no weakness or numbness in the limbs and his balance is reasonable. This morning CBC and Chem profile were unremarkable and repeat blood pressure was 133/67. He has been in sinus rhythm in the 70s since admission with occasional PACs and a rare PVCs. Triglycerides were 45 and total cholesterol 130. hemoglobin A1c is pending. Allergies Allergy/AdvReac Type Severity Reaction Status Date / Time Iodinated Contrast Media Allergy Intermediate Hives Verified 08/09/20 18:45 [Iodinated Contrast- Oral and IV Dye] iodine Allergy Unknown Verified 08/09/20 18:45 Penicillins AdvReac Unknown "not sure Verified 08/09/20 18:45 if he is allergic to it" Home Medications Medication Instructions Recorded Confirmed Type atorvastatin 40 mg tablet 40 mg PO HS tab 03/29/19 08/09/20 History benazepril 40 mg tablet 40 mg PO QAM tab 03/29/19 08/09/20 History metoprolol succinate 100 mg See Rx Instructions .ROUTE 03/29/19 08/09/20 History tablet,extended release 24 hr .COMPLEX tab niacin 500 mg tablet,extended 500 mg PO HS #1 tab 03/29/19 08/09/20 History release clopidogrel 75 mg tablet 75 mg PO QAM tab 05/21/19 08/09/20 History nitroglycerin 0.4 mg sublingual 0.4 mg SL Q5M PRN #25 tab 06/03/20 08/09/20 Rx tablet aspirin [Aspir-81] 81 mg PO HS 08/09/20 08/09/20 History Patient History Medical History CAD (coronary artery disease) S/P DE 2002 tx with one stent. S/P CABG 2007 [facility]. Gall bladder pain CURRENT ISSUE History of tachycardia Hx of small bowel obstruction NON SURGICAL INTERVENTION - 5 YR AGO Hyperlipidemia Hypertension Surgical History History of colonoscopy Hx of cardiac cath [facility] 2002; X1 STENT Hx of hand surgery RIGHT Hx of heart bypass surgery 3 VESSELS; [facility] S[facility] 2007 Family History Mother , in her 90s of heart disease Family history of diabetes mellitus Heart disease Family/Other Family history of diabetes mellitus Father , age 85 of complications of hydrocephalus Diabetes Social History (Updated 08/10/20 @ 11:11 by Henrry Ray MD) Smoking Status: Former smoker Years Smoked: 2; Number of Years Since Quit: 45; Second Hand Exposure: No; Hx Alcohol Use: Yes Alcohol type: beer Alcohol Intake Frequency Comment: 1-2 beers per week Hx Substance Use: No Preferred Language: Hong [place]er Communication Ability: Effective Prefinish Operator Required: No Beliefs That Will Affect Care: None Current Living Situation: Spouse current occupational status: employed 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 Other Information That Helps Us Care for You: No Feels Safe at Home: Yes Safety Concerns: Feels Safe At This Time Assistive Devices: Glasses Review of Systems Constitutional: no fever, no fatigue and no weakness Eyes: + worsening vision; no diplopia and no eye pain cannot see to the right Ear, Nose, Mouth, Throat: no ear pain, no tinnitus, no hearing loss, no dizziness, no hoarseness and no dysphagia Respiratory: no cough and no dyspnea Cardiovascular: no chest pain, no palpitations and no lightheadedness Gastrointestinal: no abdominal pain, no nausea and no vomiting Genitourinary: no dysuria and no urinary incontinence Musculoskeletal: no back pain, no neck pain, no radicular pain, no joint pain and no myalgia Integumentary: no rash and no lesions Neurologic: no gait abnormality, no localized weakness, no generalized weakness, no tingling, no numbness, no tremor(s), no abnormal movements, no headache(s), no abnormal speech, no confusion and no memory loss Psychiatric: no depression, no irritability, no anxiety, no difficulty concentrating, no confusion and no hallucinations Endocrine: no fatigue and no flushing Hematologic / Lymphatic: no easy bleeding and no easy bruising Allergy / Immunological: no urticaria and no problem reported Exam (Neuro) Physical Exam: The patient is right-handed. The patient is awake, alert, and attentive. Speech is normal without any aphasia or dysarthria. She can name objects, repeat phrases, and has normal spontaneous speech. Mentation and thought processes are intact, with orientation to person, place and time, and normal fund of knowledge. Attention and concentration are normal. Mood and affect are normal and appropriate. General appearance and grooming are normal. Short and long-term memory are intact to conversation. The discs are sharp with positive venous pulsations bilaterally. There are no exudates, hemorrhages, or blood vessel changes seen. Pupils are 3 mm bilaterally and reactive to light. Extraocular eye muscles are intact without nystagmus. patient has a dense right homonymous hemianopsia bilaterally. There are no deficits to sensation in the face in all 3 distributions of the fifth cranial nerve bilaterally. Corneal reflexes are positive bilaterally. Facial strength and symmetry was normal bilaterally. Hearing seems normal to whisper and finger rub bilaterally. Palate moves well without asymmetry. There is normal sternocleidomastoid and trapezius (shoulder shrug) strength bilaterally. Tongue is midline with good strength bilaterally. Neck has a full range of motion without discomfort. There are no cervical bruits bilaterally. There are no cranial or ocular bruits. Heart is without murmur. There is a regular rhythm and rate. Cervical, thoracic, and lumbar spine are nontender to palpation. Gait is narrow based, with good arm swing, turns, and stance. With outstretched arms there is no drift. There are no resting, postural, or action tremors. There is no ataxia with finger to nose testing. There is good facility in the hands. No other abnormal involuntary movements are noted. Motor strength is 5/5 diffusely in the arms bilaterally including deltoids, biceps, triceps, brachioradialis, wrist flexors and extensors, ground crew supervisor, and intrinsic hand muscles. Motor strength is 5/5 diffusely in the legs bilaterally including hip flexors, quadriceps, hamstrings, gastrocnemius, tibialis anterior, tibialis posterior, and Peroneii muscles. Toe extensors are normal and there is good bulk in the extensor digitorum brevis muscles bilaterally. The limbs have good tone without rigidity or spasticity. There is no atrophy noted in the muscles. Muscle bulk is normal, there is no tenderness to palpa tion, no myotonia to percussion, and no fasciculations seen. Sensory examination is intact to touch and pin throughout all 4 limbs diffusely. Reflexes are 1/4 in the biceps, triceps, brachioradialis, quadriceps, and Achilles tendons bilaterally. There is no clonus bilaterally. Toes are downgoing with plantar stimulation bilaterally. Peripheral pulses are present and of normal quality distally in all 4 limbs. There is no peripheral edema noted in the limbs. Results & Data ([facility]) Vital Signs (Past 12 Hours) Vital Signs Temp Pulse Resp BP BP Pulse Ox 08/10/20 08:12 36.7 C 65 19 133/67 93 08/10/20 03:59 36.9 C 59 L 16 124/70 96 08/09/20 22:54 37.2 C 59 L 17 130/72 96 PG Care Time/CCT Total # of Minutes Spent Total Time Spent with Patient: Total time spent is greater than 50% in coordination of care (as documented) at patient's floor/unit and/or counseling patient: Coding Level of Care Code 00270 Office/OBS Consult Lvl 5 Diagnoses Acute cerebrovascular accident (CVA) I63.9 Right homonymous hemianopsia due to recent cerebral infarction I69.398; H53.461 Hypertension I10 Time Spent (min) 115
--- NOTE | 2020-08-10 11:34 | Electrocardiogram Report ---
Test Reason : Blood Pressure : / mmHG Vent. Rate : 068 BPM Atrial Rate : 068 BPM P-R Int : 186 ms QRS Dur : 096 ms QT Int : 406 ms P-R-T Axes : 076 087 074 degrees QTc Int : 431 ms Normal sinus rhythm Possible Left atrial enlargement Borderline ECG When compared with ECG of 27-OCT-2018 12:24, No significant change Confirmed by Angelo Orozco ([id number]) on 08/10/2020 11:34:15 AM Referred By: Shaun Mccain Confirmed By:Angelo Orozco
[2020-08-10] MEDS ORDERED: STROKE PATIENT DISCHARGE STA (14:13)
--- NOTE | 2020-08-10 14:25 | Pharmacy Report ---
Pharmacist Stroke Counseling - Date of Service August 10, 2020 - Scope: Pharmacy has been consulted to provide medication discharge counseling for this patient admitted with ischemic stroke as per the Pharmacist Discharge Counseling for Stroke Patients Protocol. - Medications on Discharge: Home Medications Medication Instructions Recorded Confirmed atorvastatin 40 mg tablet 40 mg PO HS tab 03/29/19 08/09/20 benazepril 40 mg tablet 40 mg PO QAM tab 03/29/19 08/09/20 metoprolol succinate 100 mg See Rx Instructions .ROUTE 03/29/19 08/09/20 tablet,extended release 24 hr .COMPLEX tab niacin 500 mg tablet,extended 500 mg PO HS #1 tab 03/29/19 08/09/20 release clopidogrel 75 mg tablet 75 mg PO QAM tab 05/21/19 08/09/20 aspirin 81 mg PO HS 08/09/20 08/09/20 New Rx's Medication Instructions Recorded nitroglycerin 0.4 mg sublingual 0.4 mg SL Q5M PRN #25 tab 06/03/20 tablet - Action: The above medications, specifically ones for stroke treatment/prophylaxis, have been reviewed in detail with the patient and/or patient physician relations representative(s) prior to discharge. This includes indication, common adverse reactions, drug interactions, and medication administration. Medication counseling has been employed using the teach-back method to ensure understanding. - Outcome: The patient and/or patient physician relations representative(s) have demonstrated understanding of the medications. Additional comments: [] Thank you for allowing pharmacy to be involved in the care of this patient. Please call [phone] with any additional questions
--- NOTE | 2020-08-10 17:31 | Billing Data ---
Date of Service August 10, 2020 Coding Level of Care Code D/C Day Management <30 mins
[2020-08-10] MEDS ORDERED: ASPIRIN 81 MG ECTAB PO SCH (21:00)
--- NOTE | 2020-08-11 05:14 | Billing Data ---
Date of Service August 11, 2020 Coding Level of Care Code 91290 Initial Inpt Care Lvl 3
[2020-08-11 06:00] LABS: Estimated Average Glucose 105 mg/dl; Hemoglobin A1C 5.3 % (4.5-5.6)
[2020-08-11] MEDS ORDERED: ATORVASTATIN 40 MG TAB PO SCH (09:00)
== END 2020-08-10 15:52 | disposition home or self-care (01) | DRG 66 ==
LOC: ED 18:08 → 2S 21:52 → SUATTDRO 21:52 → 2S 22:24

== ENCOUNTER 2020-08-27 06:41 | Observation (INO) ==
[2020-08-27] MEDS ORDERED: LORazepam 1 MG TAB SL STA (07:12)
--- NOTE | 2020-08-27 07:14 | Emergency Department Note ---
History of Present Illness General Chief complaint: Cardiac Assessment Stated complaint: HIGH BP, CHEST PRESSURE, R ARM NUMBNESS Time Seen by Provider: 08/27/20 06:55 Source: patient, RN notes reviewed and old records reviewed Mode of arrival: ambulatory Limitations: no limitations History of Present Illness Provider complaint: Rt arm heaviness Onset (ago): hour(s) 1 Location: upper extremity Radiation: non-radiation Severity: mild Pain Consistency: + now resolved Maximum Pain Intensity: 0 Current Pain Intensity: 0 Quality: + aching Relieved By: + none Exacerbated By: + none Associated symptoms: no chest pain, no diaphoresis, no nausea/vomiting and no shortness of breath Treatments prior to arrival: other (Aspirin/ Plavix) This is a 70-year-old male who presents emergency department complaining of right arm heaviness. The patient reports this is the exact same symptom he had back in 2008 when he required a CABG that was done at [facility]. The patient has had a recent complicated medical history. He has been started on aspirin and Plavix when he was admitted for a stroke. He took his Plavix this morning. He reports nothing made the right arm heaviness better or worse including walking down the stairs at his house. He reports nothing seemed to make it better. He was actually to see his service restorer emergency on Tuesday for a follow-up after the stroke Home Medications Medication Instructions Recorded Confirmed Type atorvastatin 40 mg tablet 40 mg PO HS tab 03/29/19 08/27/20 History benazepril 40 mg tablet 40 mg PO QAM tab 03/29/19 08/27/20 History metoprolol succinate 100 mg 100 mg PO QAM tab 03/29/19 08/27/20 History tablet,extended release 24 hr niacin 500 mg tablet,extended 500 mg PO HS #1 tab 03/29/19 08/27/20 History release clopidogrel 75 mg tablet 75 mg PO QAM tab 05/21/19 08/27/20 History nitroglycerin 0.4 mg sublingual 0.4 mg SL Q5M PRN #25 tab 06/03/20 08/27/20 Rx tablet aspirin 81 mg PO HS 08/09/20 08/27/20 History metoprolol succinate 50 mg PO DAILY 08/11/20 08/27/20 History Allergies Allergy/AdvReac Type Severity Reaction Status Date / Time Iodinated Contrast Media Allergy Intermediate Hives Verified 08/27/20 07:17 [Iodinated Contrast- Oral and IV Dye] iodine Allergy Unknown Verified 08/27/20 07:17 Penicillins AdvReac Unknown "not sure Verified 08/27/20 07:17 if he is allergic to it" Past Med/Surg History Medical History (Updated 08/28/20 @ 08:20 by Reid Dai MD) CAD (coronary artery disease) S/P VT 2002 tx with one stent. S/P CABG [address] [facility]. 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 Hx of small bowel obstruction NON SURGICAL INTERVENTION - 5 YR AGO Hyperlipidemia Hypertension Surgical History History of colonoscopy Hx of cardiac cath [facility] 2002; X1 STENT Hx of hand surgery RIGHT Hx of heart bypass surgery 3 VESSELS; [facility] 2007 Family History Mother , in her 90s of heart disease Family history of diabetes mellitus Heart disease Family/Other Family history of diabetes mellitus Father , age 85 of complications of hydrocephalus Diabetes Social History Smoking Status: Former smoker Years Smoked: 2; Number of Years Since Quit: 45; Second Hand Exposure: No; Hx Alcohol Use: Yes Alcohol type: beer Alcohol Intake Frequency Comment: 1-2 beers per week Hx Substance Use: No Preferred Language: Latvian Communication Ability: Effective Sane Rn Required: No Beliefs That Will Affect Care: None Current Living Situation: Spouse current occupational status: employed 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 Other Information That Helps Us Care for You: No Feels Safe at Home: Yes Safety Concerns: Feels Safe At This Time Assistive Devices: Glasses Review of Systems A total of 10 systems reviewed and were otherwise negative Physical Exam Vital Signs Vital Signs - 24 hr 08/27/20 08:30 08/27/20 08:31 08/27/20 09:00 Pulse Rate 69 71 74 Respiratory Rate 16 14 Blood Pressure 158/84 H 156/76 H Blood Pressure Mean 108 102 08/27/20 09:01 08/27/20 09:30 08/27/20 09:31 Pulse Rate 73 68 68 Respiratory Rate 12 12 Blood Pressure 162/82 H Blood Pressure Mean 108 VITAL SIGNS - Vital signs and nursing notes were reviewed. GENERAL - 70-year-old male appearing stated age who is in no acute distress. Communicates well with provider and answers questions appropriately. SKIN - Without rashes. HEAD - NC/AT. EYES - PERRL with EOMI bilaterally. Sclera anicteric. Palpebral conjunctiva pink and moist with no injection noted. EARS - No deformities of external structures noted on gross examination bilaterally. NOSE - Midline and without cyanosis. No epistaxis or purulent drainage noted. Septum midline without deviation or septal hematoma noted. MOUTH/OROPHARYNX - Without perioral cyanosis. Buccal mucosa pink and moist and without leukoplakia. Tongue midline with equal elevation of palate bilaterally. No tonsillar hypertrophy, erythema, or exudates noted. dentition noted. NECK - Neck with FROM. Supple to palpation. lymphadenopathy noted. No nuchal rigidity. LUNGS - Chest wall symmetric without accessory muscle use, intercostals retractions, or central cyanosis. Normal vesicular breath sounds CTA B/L. No wheezes, rales, or rhonchi appreciated. CARDIAC - RRR with S1/S2. No murmur, rubs, or gallops appreciated. ABDOMEN - Abdominal contour without pulsations or visible masses. BS normoacti ve all four quadrants. No tenderness, palpable masses, hepatosplenomegaly, or ascites noted. EXTREMITIES - No clubbing or peripheral cyanosis. No pretibial edema present. +3/5 radial, posterior tibial, and dorsalis pedis pulses palpated throughout. +5/5 strength noted in UE/LE bilaterally. NEUROLOGIC - Cranial nerves II through XII grossly intact. Sensory intact to light touch throughout. Patellar reflexes +2/4. PSYCH - A&Ox3 and cooperates fully with examiner. Pt is very pleasant and interacts well with examiner. Course Administered Medications Aspirin (Aspirin 81 Mg Ectab) 81 mg PO HS FELIZ Stop: 09/26/20 20:59 Last Admin: 08/27/20 20:36 Dose: 81 mg Documented by: [id number] Atorvastatin Calcium (Atorvastatin 40 Mg Tab) 40 mg PO HS FELIZ Stop: 09/26/20 20:59 Last Admin: 08/27/20 20:36 Dose: 40 mg Documented by: [id number] Enoxaparin Sodium (Enoxaparin Inj 40 Mg/0.4 Ml Syr) 40 mg SQ QAM FELIZ Stop: 09/26/20 14:59 Last Admin: 08/27/20 15:48 Dose: 40 mg Documented by: [id number] Metoprolol Succinate (Metoprolol Succ 50mg Ext Rel Tab) 50 mg PO [facility] Stop: 09/26/20 20:59 Last Admin: 08/27/20 20:36 Dose: 50 mg Documented by: [id number] Niacin (Niacin Extended Rel 500 Mg Tabcr) 500 mg PO [facility] Stop: 09/26/20 20:59 Last Admin: 08/27/20 20:36 Dose: 500 mg Documented by: [id number] Discontinued Medications Al Hydrox/Mg Hydrox/Simethicone (Gi Cocktail Ed Use) 1 dose PO ONE ONE Stop: 08/27/20 08:20 Last Admin: 08/27/20 08:44 Dose: 1 dose Documented by: [id number] Amlodipine Besylate (Amlodipine Besylate 5 Mg Tab) 5 mg PO NOW ONE Stop: 08/27/20 13:01 Last Admin: 08/27/20 12:58 Dose: 5 mg Documented by: [id number] Aspirin (Aspirin Chew 324 Mg) 324 mg PO NOW STA Stop: 08/27/20 07:47 Last Admin: 08/27/20 07:57 Dose: 324 mg Documented by: [id number] Famotidine (Famotidine 40 Mg Tablet) 40 mg PO NOW ONE Stop: 08/27/20 08:20 Last Admin: 08/27/20 09:36 Dose: 40 mg Documented by: [id number] Sodium Chloride (Nss) 500 mls @ 80 mls/hr IV .Q6H15M FELIZ Stop: 08/27/20 20:59 Last Infusion: 08/27/20 21:27 Dose: 0 mls/hr Documented by: [id number] Admin: 08/27/20 15:03 Dose: 80 mls/hr Documented by: [id number] Lorazepam (Lorazepam 1 Mg Tab) 0.5 mg SL NOW STA Stop: 08/27/20 07:13 Last Admin: 08/27/20 07:58 Dose: 0.5 mg Documented by: [id number] Melatonin (Melatonin 3 Mg Tab) Confirm Administered Dose 3 mg PO .STK-MED ONE Stop: 08/27/20 23:25 Last Admin: 08/27/20 23:25 Dose: 3 mg Documented by: [id number] Pantoprazole Sodium (Pantoprazole 40 Mg Tab) 40 mg PO NOW ONE Stop: 08/27/20 13:01 Last Admin: 08/27/20 12:58 Dose: 40 mg Documented by: [id number] Sucralfate (Sucralfate 1 Gm Tab) 1 gm PO NOW STA Stop: 08/27/20 08:20 Last Admin: 08/27/20 08:44 Dose: 1 gm Documented by: [id number] Medical Decision Making Differential Diagnosis Cardiac ischemia, aortic dissection, pulmonary embolism, pneumothorax, pneumonia, pericarditis, myocarditis, esophageal rupture, GERD, cholecystitis, pancreatitis, musculoskeletal, as well as other pathologies. Medical Records Attestation: I reviewed the patient's medical records. Home Medications Current Medication List: was personally reviewed by me Laboratory Data Attestation: I reviewed the patient's lab results. Result diagrams: 08/28/20 06:57 08/28/20 06:57 Lab Results 08/27/20 08/27/20 08/27/20 Range/Units 07:00 07:00 07:00 WBC 5.43 (4.8-10.8) K/uL RBC 5.28 (4.7-6.1) M/uL Hgb 17.5 (14.0-18.0) g/dL Hct 49.2 (42-52) % MCV 93.2 (80-100) fL MCH 33.1 (25-34) pg MCHC 35.6 (32-36) g/dL RDW Std Deviation 42.3 (36.4-46.3) fL RDW Coeff of Eleonora 12.4 (11.5-14.5) % Plt Count 164 (130-400) K/uL MPV 10.2 (7.4-10.4) fL Immature Gran % (Auto) 0.2 % Neut % (Auto) 64.2 % Lymph % (Auto) 25.4 % [place] % (Auto) 8.7 % Eos % (Auto) 1.1 % Baso % (Auto) 0.4 % Neut # (Auto) 3.49 (1.4-6.5) K/uL Lymph # (Auto) 1.38 (1.2-3.4) K/uL [place] # (Auto) 0.47 (0.11-0.59) K/uL Eos # (Auto) 0.06 (0-0.5) K/uL Baso # (Auto) 0.02 (0-0.2) K/uL Immature Gran # (Auto) 0.01 (0.00-0.02) K/uL PT 10.5 (9.0-12.0) Seconds INR 1.0 (0.9-1.1) APTT 24.8 (21.0-31.0) Seconds PTT Ratio 0.9 Sodium 141 (136-145) mmol/L Potassium 3.7 (3.5-5.1) mmol/L Chloride 110 H (98-107) mmol/L Carbon Dioxide 24 (21-32) mmol/L Anion Gap 7.0 (3-11) BUN 24 H (7-18) mg/dl Creatinine 1.39 (0.6-1.4) mg/dl Est Cr Clr Drug Dosing 47.5 ml/min Est GFR ( Amer) 59.5 Est GFR (Non-Af Amer) 51.3 BUN/Creatinine Ratio 17.2 (10-20) Glucose 121 H (70-99) mg/dl Calcium 9.1 (8.5-10.1) mg/dl Total Bilirubin 1.3 H (0.2-1) mg/dl AST 34 (15-37) U/L ALT 55 (12-78) U/L Alkaline Phosphatase 78 (45-117) U/L Total Creatine Kinase 94 (39-308) U/L CK-MB (CK-2) 1.3 (0.5-3.6) ng/ml CK/CKMB % Calc 1.4 (0-3.0) Troponin I 0.041 (0-0.045) ng/ml Total Protein 7.5 (6.4-8.2) gm/dl Albumin 4.2 (3.4-5.0) gm/dl Globulin 3.3 (2.5-4.0) gm/dl Albumin/Globulin Ratio 1.3 (0.9-2) COVID-19 Eval Order SARS-CoV-2, RNA, NAAT (NEGATIVE) 08/27/20 08/27/20 08/27/20 Range/Units 07:50 07:50 09:39 WBC (4.8-10.8) K/uL RBC (4.7-6.1) M/uL Hgb (14.0-18.0) g/dL Hct (42-52) % MCV (80-100) fL MCH (25-34) pg MCHC (32-36) g/dL RDW Std Deviation (36.4-46.3) fL RDW Coeff of Eleonora (11.5-14.5) % Plt Count (130-400) K/uL MPV (7.4-10.4) fL Immature Gran % (Auto) % Neut % (Auto) % Lymph % (Auto) % [place] % (Auto) % Eos % (Auto) % Baso % (Auto) % Neut # (Auto) (1.4-6.5) K/uL Lymph # (Auto) (1.2-3.4) K/uL [place] # (Auto) (0.11-0.59) K/uL Eos # (Auto) (0-0.5) K/uL Baso # (Auto) (0-0.2) K/uL Immature Gran # (Auto) (0.00-0.02) K/uL PT (9.0-12.0) Seconds INR (0.9-1.1) APTT (21.0-31.0) Seconds PTT Ratio Sodium (136-145) mmol/L Potassium (3.5-5.1) mmol/L Chloride (98-107) mmol/L Carbon Dioxide (21-32) mmol/L Anion Gap (3-11) BUN (7-18) mg/dl Creatinine (0.6-1.4) mg/dl Est Cr Clr Drug Dosing ml/min Est GFR ( Amer) Est GFR (Non-Af Amer) BUN/Creatinine Ratio (10-20) Glucose (70-99) mg/dl Calcium (8.5-10.1) mg/dl Total Bilirubin (0.2-1) mg/dl AST (15-37) U/L ALT (12-78) U/L Alkaline Phosphatase (45-117) U/L Total Creatine Kinase (39-308) U/L CK-MB (CK-2) (0.5-3.6) ng/ml CK/CKMB % Calc (0-3.0) Troponin I 0.038 (0-0.045) ng/ml Total Protein (6.4-8.2) gm/dl Albumin (3.4-5.0) gm/dl Globulin (2.5-4.0) gm/dl Albumin/Globulin Ratio (0.9-2) COVID[facility], RNA, NAAT NEGATIVE (NEGATIVE) Imaging Data Radiologist's Impression: [facility] [place] [phone] XRay Report Patient: LAUREL MAYBERRY V Admit Date: 08/27/20 MR#: [id number] Address1: [address] Acct ID:[id number] Address2: Date: [address] [facility] Zip: [place] [address] Age: 70 Location: ED Sex: M Room/Bed: Att Phy: Diagnosis: HIGH BP, CHEST PRESSURE, R ARM NUMBNESS Mary Phy: Guille Jane D.O. Service Date: 08/27/20 [facility] Phy: Interpreting Phy: Ridge Zuniga MD Admit Phy: Ordering Phy: Reid Dai MD cc: ~ SINGLE VIEW CHEST CLINICAL HISTORY: Atypical chest pain. FINDINGS: 2 AP, portable, upright chest radiographs are compared to study dated 10/27/2018. The patient is status post midline sternotomy. The heart is top normal in size noting atherosclerotic calcification of the thoracic aorta. The pulmonary vasculature is noncongested. The lungs and pleural spaces are clear. No pneumothorax is seen. The bony thorax is grossly intact. IMPRESSION: No acute cardiopulmonary abnormality. ACT 112: Negative or not required by law. Electronically signed by: Ridge Zuniga M.D. 08/27/2020 7:50 AM Dictated: 08/27/2049 Transcribed: 08/27/20748 ECG Data Attestation: I personally reviewed and interpreted this ECG as follows: Indication: + chest pain Rate (beats per minute): 78 ECG Intervals/blocks: + Normal QT-c (437) ECG [place]: + Normal ECG ST segments: no ST depression and no ST elevation Comparison ECG Date: from (08/11/2020) Change: no significant change MDM Narrative Patient was seen and evaluated as above in room A10. Review was performed of nursing notes and vital signs. I did review pertinent previous visits and patient history. After obtaining a thorough history and physical examination the above work up was performed. This is a 70-year-old male who has a history of coronary artery bypass who presents emergency department complaining of right arm heaviness. The patient recently had a CVA and has been on aspirin and Plavix. He was given 324 of aspirin here. He is currently pain-free. I will note that the patient had a negative troponin approximately 2 weeks ago however it is elevated today. I did discuss the case with the service restorer emergency who asked that the patient be admitted to the inpatient service. I did discuss the case with the hospitalist who did agree to admit the patient. The patient was evaluated during a period of high volume and high acuity while the hospital was at overcapacity during the global COVID-19 pandemic, and that diagnosis was suspected/considered upon their initial presentation. Their evaluation, treatment and testing was consistent with current guidelines for patients who present with complaints or symptoms that may be related to COVID- 19. Impression & Plan Arm heaviness, CAD (coronary artery disease), Hypertension Discharge Plan Visit Data Chief Complaint: Cardiac Assessment Stated Complaint: HIGH BP, CHEST PRESSURE, R ARM NUMBNESS ED Provider: Reid Dai Discharge Problem: Arm heaviness, CAD (coronary artery disease), Hypertension Patient Disposition: Admitted As Inpatient Discharge Instructions Interventions: ED Discharge Assessment Last Done: 08/27/20 10:46 Discharge Problem: CAD (coronary artery disease) Qualifiers: Coronary Disease-Associated Artery/Lesion type: unspecified vessel or lesion type [place] vs. transplanted heart: unspecified whether [place] or transplanted heart Associated angina: angina presence unspecified Qualified Code(s): I25.10 - Atherosclerotic heart disease of [place] coronary artery without angina pectoris Hypertension Qualifiers: Hypertension type: unspecified Qualified Code(s): I10 - Essential (primary) hypertension
[2020-08-27 07:22] LABS: Basophils # (auto) 0.02 K/uL (0-0.2); Basophils % (auto) 0.4 %; Eosinophils # (auto) 0.06 K/uL (0-0.5); Eosinophils % (auto) 1.1 %; Hematocrit (blood only) 49.2 % (42-52); Hemoglobin 17.5 g/dL (14.0-18.0); Immature Granulocytes # (auto) 0.01 K/uL (0.00-0.02); Immature Granulocytes % (auto) 0.2 %; Lymphocytes # (auto) 1.38 K/uL (1.2-3.4); Lymphocytes % (auto) 25.4 %; Mean Corpuscular Hemoglobin 33.1 pg (25-34); Mean Corpuscular Hgb Conc 35.6 g/dL (32-36); Mean Corpuscular Volume 93.2 fL (80-100); Mean Platelet Volume 10.2 fL (7.4-10.4); Monocytes # (auto) 0.47 K/uL (0.11-0.59); Monocytes % (auto) 8.7 %; Neutrophils # (auto) 3.49 K/uL (1.4-6.5); Neutrophils % (auto) 64.2 %; Platelet Count 164 K/uL (130-400); RDW Coefficient of Variation 12.4 % (11.5-14.5); RDW Standard Deviation 42.3 fL (36.4-46.3); Red Blood Count 5.28 M/uL (4.7-6.1); White Blood Count 5.43 K/uL (4.8-10.8)
[2020-08-27 07:30] LABS: Albumin Level 4.2 gm/dl (3.4-5.0); BUN Creatinine Ratio 17.2 (10-20); Calcium 9.1 mg/dl (8.5-10.1); Creatinine Clr Calc Pharmacy 47.5 ml/min; Est GFR (African American) 59.5; Est GFR (Non-African American) 51.3; Potassium 3.7 mmol/L (3.5-5.1)
[2020-08-27 07:36] LABS: Albumin Globulin Ratio 1.3 (0.9-2); Bilirubin,Total 1.3 mg/dl (0.2-1); Creatine Kinase MB 1.3 ng/ml (0.5-3.6); Globulin 3.3 gm/dl (2.5-4.0); Total Protein 7.5 gm/dl (6.4-8.2); Troponin I 0.041 ng/ml (0-0.045)
[2020-08-27] MEDS ORDERED: ASPIRIN CHEW 324 MG PO STA (07:46)
--- NOTE | 2020-08-27 07:51 | XRay Report ---
SINGLE VIEW CHEST CLINICAL HISTORY: Atypical chest pain. FINDINGS: 2 AP, portable, upright chest radiographs are compared to study dated 10/27/2018. The patien t is status post midline sternotomy. The heart is top normal in size noting atherosclerotic calcifica tion of the thoracic aorta. The pulmonary vasculature is noncongested. The lungs and pleural spaces a re clear. No pneumothorax is seen. The bony thorax is grossly intact. IMPRESSION: No acute cardiopulmonary abnormality. ACT 112: Negative or not required by law. Electronically signed by: Ridge Zuniga M.D. 08/27/2020 7:50 AM
[2020-08-27 08:12] LABS: Partial Thromboplastin Ratio 0.9; Partial Thromboplastin Time 24.8 Seconds (21.0-31.0); Prothrombin Time 10.5 Seconds (9.0-12.0)
[2020-08-27] MEDS ORDERED: FAMOTIDINE 40 MG TABLET PO ONE (08:19)
[2020-08-27] MEDS ORDERED: GI COCKTAIL ED USE PO ONE (08:19)
[2020-08-27] MEDS ORDERED: SUCRALFATE 1 GM TAB PO STA (08:19)
--- NOTE | 2020-08-27 08:37 | History & Physical Report ---
Date of Service August 27, 2020 Assessment & Plan (1) Arm heaviness: * concerning given hx of anginal equivalent with right arm heaviness requiring CABG in 2008; ECG without any ischemia * Had recent normal stress test in 05/2020 after having seemingly similar symptoms * some of the chest pressure may been related to dyspepsia as it was relieved with GI cocktail and Pepcid in the ER * recently started on Keppra 1gm BID for post-CVA seizures/visual changes during ER visit on Aug 11 -- ? Asthenia/elevated BP effects from medications * Obs tele r/o ACS * Serial troponins * Weights * Intake & Output * Cardiology consulted * Will obtain CT Head given occipital headache (if negative will start Lovenox for DVT proph) * Neurology consulted -- recent seizure like activity and was d/c on Keppra from ER on 08/11 but only took for 8 days and had no follow up or continuation of medications. Appreciate assistance * Tylenol prn headache * Continue on Protonix here * Continue aspirin, Plavix, atorvastatin, metoprolol Previous A1c 5.3, Lipid panel acceptable (2) Hypertension: * Chronic, but with hypertensive urgency upon admission with blood pressure 206 systolic at home in the setting of right upper extremity heaviness * Blood pressures improved upon arrival but still elevated * Elevated 160/80 but did not take AM medications * Continue metoprolol 100mg AM/50mg QHS, benazepril 40mg * Start 5mg amlodipine and will continue daily (mild headache and elevated BPs)- this is also an antianginal * Continue to monitor (3) Hyperlipidemia: * Chronic. * Continue atorvastatin 40mg daily (4) CAD (coronary artery disease): * Hx of CABG 2008 with anginal equivalent of right arm heaviness -- follows with Dr. 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 Was evaluated and seen by Neurology and started on keppra 1gm PO BID and to have outpatient EEG and f/u at the end of September * EEG ordered to look for seizure activity * Appreciate neurology consultation (7) Headache: * Mild-- suspect related to elevated BPs * Tylenol prn * Control blood pressure as above (8) Epigastric discomfort: * Possible some symptoms related to reflux given improvement with GI cocktail, sucralfate and Pepcid * Will start on protonix daily, continue at discharge * Continue to monitor (9) DVT prophylaxis: * SCDs * If Head CT negative, will add Lovenox SQ History of Present Illness Chief Complaint: R arm heaviness, HTN Primary Care Provider: Guille Jane, 70 year old male with PMHx significant for recent occipital stroke Aug 08 2020 felt to be ischemic (on DAPT), HTN, HLD, CABG (2008) who presented to the emergency department with right arm heaviness and chest pressure. This is more concerning given previous symptoms of right arm heaviness resulting in need for CABG in 2008 and he woke up this morning and had continued right arm heaviness/numbness. Nothing made this better or worse. He did take his Plavix this morning as well as his metoprolol and benazepril. Presented to the ER on Aug 11 for floaters and flashing "burning lights" and was started on Keppra 1gm BID for a total of 8 days and had nothing since that or follow up from that time. He notes that adult figures and embers to diagonal region of his right eye had improved with the Keppra but that he hasn't had any in several days. 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 Freire. He said Tuesday he hadn't been feeling great and had some discomfort in his chest and throat that felt like he needed to burp with an associated pressure. and fullness but denies any difficulty or pain with swallowing. Has been changing his diet to lose 10 lb since the stroke and endorses more fiber in his diet. Symptoms with his CABG (2008 with prior OK in ) had R arm heavi ness/numbness which did not start until last evening. 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 Slept until 4am and watched some [employer]. At 5am he had some discomfort in his chest that felt like it he was being pushed from the inside out. He checked his blood pressure, which he does periodically, and had been elevated to 206/106 and then repeat was 200/109 with associated right arm heav iness. On the trip into the ER he states he had some sweatiness to his palms and had to roll the window down for fresh air as he felt "confined". Pressure symptoms no longer present at this time since administration of GI cocktail and BP came down. Mild dull headache occipital region. No history of headache or headaches like this. No lower extremity weakness but does endorse some gait instability at home still. Lives in [place] with his . Went home at discharge from previous stroke earlier this month. Of note, he recently put in notice to [employer] for his group home and recently was diagnosed with breast cancer and will be having surgery next month which could also be adding to his anxiety/stress as he notes he "doesn't seem anxious on the outside but on the inside I keep moving". No fever, chills, abdominal pain, nausea, vomiting, dysuria at this time. ER Course: ASA 324mg, Lorazepam 0.5mg PO SL, Carafate, Pepcid and GI cocktail EKG NSR Trop 0.041 CXR without acute process Allergies Allergy/AdvReac Type Severity Reaction Status Date / Time Iodinated Contrast Media Allergy Intermediate Hives Verified 08/27/20 07:17 [Iodinated Contrast- Oral and IV Dye] iodine Allergy Unknown Verified 08/27/20 07:17 Penicillins AdvReac Unknown "not sure Verified 08/27/20 07:17 if he is allergic to it" Home Medications Medication Instructions Recorded Confirmed Type atorvastatin 40 mg tablet 40 mg PO HS tab 03/29/19 08/27/20 History benazepril 40 mg tablet 40 mg PO QAM tab 03/29/19 08/27/20 History metoprolol succinate 100 mg 100 mg PO QAM tab 03/29/19 08/27/20 History tablet,extended release 24 hr niacin 500 mg tablet,extended 500 mg PO HS #1 tab 03/29/19 08/27/20 History release clopidogrel 75 mg tablet 75 mg PO QAM tab 05/21/19 08/27/20 History nitroglycerin 0.4 mg sublingual 0.4 mg SL Q5M PRN #25 tab 06/03/20 08/27/20 Rx tablet aspirin 81 mg PO HS 08/09/20 08/27/20 History metoprolol succinate 50 mg PO DAILY 08/11/20 08/27/20 History Past Med/Surg History Medical History CAD (coronary artery disease) S/P OK 2002 tx with one stent. S/P CABG 2007 [facility]. 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 Hx of small bowel obstruction NON SURGICAL INTERVENTION - 5 YR AGO Hyperlipidemia Hypertension Surgical History History of colonoscopy Hx of cardiac cath [facility] 2002; X1 STENT Hx of hand surgery RIGHT Hx of heart bypass surgery 3 VESSELS; [facility] 2007 Family History Mother , in her 90s of heart disease Family history of diabetes mellitus Heart disease Family/Other Family history of diabetes mellitus Father , age 85 of complications of hydrocephalus Diabetes Social History Smoking Status: Former smoker Years Smoked: 2; Number of Years Since Quit: 45; Second Hand Exposure: No; Hx Alcohol Use: Yes Alcohol type: beer Alcohol Intake Frequency Comment: 1-2 beers per week Hx Substance Use: No Preferred Language: Setswana Communication Ability: Effective Pattern Finisher Required: No Beliefs That Will Affect Care: None Current Living Situation: Spouse current occupational status: employed 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 Other Information That Helps Us Care for You: No Feels Safe at Home: Yes Safety Concerns: Feels Safe At This Time Assistive Devices: Glasses Review of Systems Review of Systems: All systems reviewed & are unremarkable except as noted in HPI & below Physical Exam Constitutional: WD/WN, vitals as above comfortable; no acute distress Eyes: + anicteric sclerae R eye -- lateral field cut ENMT: Ears: no hearing impairment and no external ear abnormality Neck: normal visual inspection and trachea midline Respiratory: normal respiratory effort, lungs clear to auscultation Cardiovascular: RRR, no murmur, no edema Chest (Breasts): Additional Comments: incisional scar from prior CABG Gastrointestinal (Abdomen): normal bowel sounds, soft, nontender, no he patosplenomegaly Musculoskeletal: no cyanosis or clubbing, extremities motor strength 5/5 Skin: warm ,dry Neurologic: CN's II-XI intact bilaterally and deep tendon reflexes 2+ bilaterally [id number] intact bilaterally pierce-heel intact bilaterally strength 5/5 no pronator drift Psychiatric: Orientation: alert and oriented x 3 Genitourinary: no zheng Lymphatic: no cervical or axillary lymphadenopathy Results & Data Results & Data ([facility]) Vital Signs (Past 12 Hours) Vital Signs Temp Pulse Resp BP BP Pulse Ox 08/27/20 08:13 160/80 H 08/27/20 08:01 72 11 L 97 08/27/20 08:00 76 17 168/88 H 96 08/27/20 07:30 75 17 98 08/27/20 07:24 71 12 08/27/20 06:57 69 16 194/89 H 98 08/27/20 06:46 36.6 C 78 18 97 Laboratory Results 08/27/20 08/27/20 08/27/20 Range/Units 07:50 07:50 07:00 WBC (4.8-10.8) K/uL RBC (4.7-6.1) M/uL Hgb (14.0-18.0) g/dL Hct (42-52) % MCV (80-100) fL MCH (25-34) pg MCHC (32-36) g/dL RDW Std Deviation (36.4-46.3) fL RDW Coeff of Eleonora (11.5-14.5) % Plt Count (130-400) K/uL MPV (7.4-10.4) fL Immature Gran % (Auto) % Neut % (Auto) % Lymph % (Auto) % Ellsworth % (Auto) % Eos % (Auto) % Baso % (Auto) % Neut # (Auto) (1.4-6.5) K/uL Lymph # (Auto) (1.2-3.4) K/uL Ellsworth # (Auto) (0.11-0.59) K/uL Eos # (Auto) (0-0.5) K/uL Baso # (Auto) (0-0.2) K/uL Immature Gran # (Auto) (0.00-0.02) K/uL PT (9.0-12.0) Seconds INR (0.9-1.1) APTT (21.0-31.0) Seconds PTT Ratio Sodium (136-145) mmol/L Potassium (3.5-5.1) mmol/L Chloride (98-107) mmol/L Carbon Dioxide (21-32) mmol/L Anion Gap (3-11) BUN (7-18) mg/dl Creatinine (0.6-1.4) mg/dl Est Cr Clr Drug Dosing ml/min Est GFR ( Amer) Est GFR (Non-Af Amer) BUN/Creatinine Ratio (10-20) Glucose (70-99) mg/dl Calcium (8.5-10.1) mg/dl Total Bilirubin (0.2-1) mg/dl AST (15-37) U/L ALT (12-78) U/L Alkaline Phosphatase (45-117) U/L Total Creatine Kinase (39-308) U/L CK-MB (CK-2) (0.5-3.6) ng/ml CK/CKMB % Calc (0-3.0) Troponin I Pending (0-0.045) ng/ml Total Protein (6.4-8.2) gm/dl Albumin (3.4-5.0) gm/dl Globulin (2.5-4.0) gm/dl Albumin/Globulin Ratio (0.9-2) COVID-19 Eval Order Covid19 IDNow [facility] SARS-CoV-2, RNA, NAAT NEGATIVE (NEGATIVE) 08/27/20 08/27/20 08/27/20 Range/Units 07:00 07:00 07:00 WBC 5.43 (4.8-10.8) K/uL RBC 5.28 (4.7-6.1) M/uL Hgb 17.5 (14.0-18.0) g/dL Hct 49.2 (42-52) % MCV 93.2 (80-100) fL MCH 33.1 (25-34) pg MCHC 35.6 (32-36) g/dL RDW Std Deviation 42.3 (36.4-46.3) fL RDW Coeff of Eleonora 12.4 (11.5-14.5) % Plt Count 164 (130-400) K/uL MPV 10.2 (7.4-10.4) fL Immature Gran % (Auto) 0.2 % Neut % (Auto) 64.2 % Lymph % (Auto) 25.4 % Ellsworth % (Auto) 8.7 % Eos % (Auto) 1.1 % Baso % (Auto) 0.4 % Neut # (Auto) 3.49 (1.4-6.5) K/uL Lymph # (Auto) 1.38 (1.2-3.4) K/uL Ellsworth # (Auto) 0.47 (0.11-0.59) K/uL Eos # (Auto) 0.06 (0-0.5) K/uL Baso # (Auto) 0.02 (0-0.2) K/uL Immature Gran # (Auto) 0.01 (0.00-0.02) K/uL PT 10.5 (9.0-12.0) Seconds INR 1.0 (0.9-1.1) APTT 24.8 (21.0-31.0) Seconds PTT Ratio 0.9 Sodium 141 (136-145) mmol/L Potassium 3.7 (3.5-5.1) mmol/L Chloride 110 H (98-107) mmol/L Carbon Dioxide 24 (21-32) mmol/L Anion Gap 7.0 (3-11) BUN 24 H (7-18) mg/dl Creatinine 1.39 (0.6-1.4) mg/dl Est Cr Clr Drug Dosing 47.5 ml/min Est GFR ( Amer) 59.5 Est GFR (Non-Af Amer) 51.3 BUN/Creatinine Ratio 17.2 (10-20) Glucose 121 H (70-99) mg/dl Calcium 9.1 (8.5-10.1) mg/dl Total Bilirubin 1.3 H (0.2-1) mg/dl AST 34 (15-37) U/L ALT 55 (12-78) U/L Alkaline Phosphatase 78 (45-117) U/L Total Creatine Kinase 94 (39-308) U/L CK-MB (CK-2) 1.3 (0.5-3.6) ng/ml CK/CKMB % Calc 1.4 (0-3.0) Troponin I 0.041 (0-0.045) ng/ml Total Protein 7.5 (6.4-8.2) gm/dl Albumin 4.2 (3.4-5.0) gm/dl Globulin 3.3 (2.5-4.0) gm/dl Albumin/Globulin Ratio 1.3 (0.9-2) COVID-19 Eval Order SARS-CoV-2, RNA, NAAT (NEGATIVE) Diagnostic Findings CXR IMPRESSION: No acute cardiopulmonary abnormality. Supervising Physician Co-Signing Physician Notes PA Supervision Note: I personally saw and examined the patient. I verified all cortes points and agree with HARLEY Haskins with the following exceptions and/or additions: This patient is a 70-year-old male with history of CAD status post CABG, HTN, recent occipital stroke, who presents to the ER with chest pressure and right upper extremity heaviness with mild occipital headache and significantly elevated blood pressure to 206 systolic at home. It reminded him of his previous anginal symptoms in the past. He is also been having some ongoing flashes of light in the right peripheral field of vision after his occipital stroke and a right homonymous hemianopsia. He was placed on Keppra for 8 days but ran out and did not have follow-up with neurology in the office and therefore has not taken it for last 8 days. He is currently chest pain-free, no further extremity heaviness in the right arm as blood pressure is now improved. Remains with a mild headache. No other weakness or numbness anywhere. History and ROS reviewed as above Vitals reviewed Gen: AAOx3, NAD HEENT: Anicteric sclerae, EOMI, PERRLA CV: RRR no mgr nl S1S2 Pulm: CTAB no wcr Abd: +BS soft NT ND no masses or hernias Ext: No edema, no calf tenderness Skin: No rashes, warm/dry Neuro: Full strength throughout Laboratory values reviewed ECG reviewed Chest x-ray reviewed I discussed the case with cardiology and neurology 70-year-old male with history noted as above, here with hypertensive urgency, right upper extremity heaviness and chest pressure, recent occipital stroke. Plan outlined as above Rule out for acute coronary syndrome Add amlodipine for improved blood pressure control Consult neurology to see about possibility of seizures related to occipital lobe stroke Will need ophthalmology follow-up as an outpatient for the flashes of light in right field of vision Add Protonix as chest pressure seems to be GI related as well PG Care Time/CCT Total # of Minutes Spent Total Time Spent with Patient: Total time spent is greater than 50% in coordination of care (as documented) at patient's floor/unit and/or counseling patient: Coding Level of Care Code 90192 OBS Care - Level 3 Diagnoses Arm heaviness R29.898 Hypertension I10 Hyperlipidemia E78.5 CAD (coronary artery disease) I25.10 Right homonymous hemianopsia due to recent cerebral infarction I69.398; H53.461 Visual changes H53.9 Headache R51.9 Epigastric discomfort R10.13 DVT prophylaxis Z29.9
--- NOTE | 2020-08-27 11:18 | Magnetic Resonance Report ---
MRI OF THE BRAIN WITHOUT CONTRAST CLINICAL HISTORY: recent CVA, weakness COMPARISON STUDY: MRI performed August 10, 2020 FINDINGS: Sagittal T1, axial diffusion, proton density and T2 weighted axial, coronal FLAIR, and axial T1-weigh gudelia images were acquired. No intra or extra-axial mass lesions are visualized Axial diffusion-weighted images reveal no evidence of acute or subacute infarction. There is no evidence of ventricular dilatation. Proton density T2-weighted and FLAIR images reveal scattered foci of increased T2 signal within the w edouard matter, likely on a small vessel basis. There are expected interval evolutionary changes of the previously identified left posterior cerebral artery distribution infarct ((left occipital and tempor al lobes). Increased gyriform T1 signal in the region of the infarct is consistent with laminar necro sis and mineralization/petechial hemorrhage. There are no abnormal flow voids. IMPRESSION: 1. Expected interval evolution area changes of the previously identified left posterior cerebral dallin ry distribution infarct 2. No evidence of acute infarction. ACT 112: Negative or not required by law. Electronically signed by: Harris Smart M.D. 08/27/2020 11:17 AM
[2020-08-27] MEDS ORDERED: NITROGLYCERIN SL 0.4 MG/TAB TAB SL PRN (12:23)
[2020-08-27] MEDS ORDERED: ACETAMINOPHEN 325 MG TAB PO PRN (12:23)
[2020-08-27] MEDS ORDERED: hydrALAZINE HCL 20 MG/ML VIAL IV PRN (12:23)
--- NOTE | 2020-08-27 12:23 | Electrocardiogram Report ---
Test Reason : Blood Pressure : / mmHG Vent. Rate : 072 BPM Atrial Rate : 072 BPM P-R Int : 200 ms QRS Dur : 094 ms QT Int : 390 ms P-R-T Axes : 062 083 057 degrees QTc Int : 427 ms Normal sinus rhythm Normal ECG When compared with ECG of 27-AUG-2020 06:55, (unconfirmed) No significant change was found Confirmed by Adán Rodrigues ([id number]) on 08/27/2020 12:22:43 PM Referred By: REFERRED SELF Confirmed By:Mic Rodrigues
--- NOTE | 2020-08-27 12:23 | Electrocardiogram Report ---
Test Reason : Blood Pressure : / mmHG Vent. Rate : 078 BPM Atrial Rate : 078 BPM P-R Int : 192 ms QRS Dur : 094 ms QT Int : 384 ms P-R-T Axes : 066 086 058 degrees QTc Int : 437 ms Normal sinus rhythm Normal ECG When compared with ECG of 11-AUG-2020 12:13, No significant change was found Confirmed by Adán Rodrigues ([id number]) on 08/27/2020 12:23:13 PM Referred By: REFERRED SELF Confirmed By:Mic Rodrigues
[2020-08-27] MEDS ORDERED: amLODIPine BESYLATE 5 MG TAB PO ONE (13:00)
[2020-08-27] MEDS ORDERED: PANTOprazole 40 MG TAB PO ONE (13:00)
[2020-08-27] MEDS ORDERED: SODIUM CHLORIDE 0.9% 500 ML IV SCH (14:45)
--- NOTE | 2020-08-27 14:54 | Electroencephalogram ---
EEG Procedure Note Date of Service August 27, 2020 Start / End Times Start Time: 8:45am End Time: 9:05am Referring Physician carmelo carrion History post stroke visual changes Home Medication List Medication Instructions Recorded Confirmed Type atorvastatin 40 mg tablet 40 mg PO HS tab 03/29/19 08/27/20 History benazepril 40 mg tablet 40 mg PO QAM tab 03/29/19 08/27/20 History metoprolol succinate 100 mg 100 mg PO QAM tab 03/29/19 08/27/20 History tablet,extended release 24 hr niacin 500 mg tablet,extended 500 mg PO HS #1 tab 03/29/19 08/27/20 History release clopidogrel 75 mg tablet 75 mg PO QAM tab 05/21/19 08/27/20 History nitroglycerin 0.4 mg sublingual 0.4 mg SL Q5M PRN #25 tab 06/03/20 08/27/20 Rx tablet aspirin 81 mg PO HS 08/09/20 08/27/20 History metoprolol succinate 50 mg PO DAILY 08/11/20 08/27/20 History Inpatient Medication List Discontinued Medications Al Hydrox/Mg Hydrox/Simethicone (Gi Cocktail Ed Use) 1 dose PO ONE ONE Stop: 08/27/20 08:20 Last Admin: 08/27/20 08:44 Dose: 1 dose Documented by: [id number] Amlodipine Besylate (Amlodipine Besylate 5 Mg Tab) 5 mg PO NOW ONE Stop: 08/27/20 13:01 Last Admin: 08/27/20 12:58 Dose: 5 mg Documented by: [id number] Aspirin (Aspirin Chew 324 Mg) 324 mg PO NOW STA Stop: 08/27/20 07:47 Last Admin: 08/27/20 07:57 Dose: 324 mg Documented by: [id number] Famotidine (Famotidine 40 Mg Tablet) 40 mg PO NOW ONE Stop: 08/27/20 08:20 Last Admin: 08/27/20 09:36 Dose: 40 mg Documented by: [id number] Lorazepam (Lorazepam 1 Mg Tab) 0.5 mg SL NOW STA Stop: 08/27/20 07:13 Last Admin: 08/27/20 07:58 Dose: 0.5 mg Documented by: [id number] Pantoprazole Sodium (Pantoprazole 40 Mg Tab) 40 mg PO NOW ONE Stop: 08/27/20 13:01 Last Admin: 08/27/20 12:58 Dose: 40 mg Documented by: [id number] Sucralfate (Sucralfate 1 Gm Tab) 1 gm PO NOW STA Stop: 08/27/20 08:20 Last Admin: 08/27/20 08:44 Dose: 1 gm Documented by: [id number] Description This is a 21 electrode EEG with a single channel dedicated to limited EKG. The electrodes were placed in accordance with the International 10-20 system. History: seizure like events Rx: none Start/Stop: 8:45am/9:05am Attending reading: Carmelo Carrion EEG Description: EEG background: Background was low voltage with 8-10Hz symmetric alpha rhythm. A poorly formed 8-9 Hz posterior dominant rhythm was observed. The EEG is continuous. There is variability and reactivity present. Activation and reactivity: Photic stimulation performed without any abnormalities noted. No photic driving observed. Hyperventilation was not performed. Sleep: No sleep architecture noted. Epileptiform discharges: No epileptiform discharges were observed. Rhythmic and periodic patterns: None Seizures: None Impression: This was a normal awake EEG. No seizures or epileptiform discharges were seen. Clinical correlation required. [facility] EEG Procedure Codes Indication for Procedure (1) Visual changes: (2) Acute left LNA stroke: Neurology Neurology: [id number] EEG include record awake & drowsy
[2020-08-27] MEDS: ENOXAPARIN INJ 40 MG/0.4 ML SYR SQ SCH (15:48)
--- NOTE | 2020-08-27 16:20 | Cardiology Consultation ---
Date of Consultation August 27, 2020 Assessment & Plan (1) Chest pain: This symptoms are somewhat atypical in their description. They also happen at rest and appear to have been fairly extended in duration. Is not appear to resolve any specific intervention. His biomarkers have been unr emarkable. There is certainly not elevated and there is no rise and fall typical of an acute coronary syndrome. It is possible that there detectable simply due to severely elevated blood pressure earlier in the evening. At this point I do not believe he suffers from acute coronary syndrome. I do not believe he requires any additional risk stratification. He did very well on an exercise echocardiogram 3 months ago. I think we can concentrate on risk factor modification. (2) Hypertension: Previously claimed to have good blood pressure. However more recently seems to have fairly elevated blood pressures. I would agree with the addition of amlodipine. (3) CAD (coronary artery disease): I do not believe his current symptoms are likely related to an acute coronary syndrome. Curiously, he feels that right arm discomfort is indicative of ischemia. He has had this symptom on multiple occasions in the past. He has undergone testing for this symptom in the past. He has not had evidence of inducible ischemia since his bypass performed in 2007. In addition to the amlodipine that was added he can continue on his outpatient medical regimen which includes high-dose atorvastatin, high-dose metoprolol and now dual anti-platelet therapy. History of Present Illness Reason for Consultation: Chest pain Requesting Physician: Jozef Attending Physician: Vicky Estevez MD History of Present Illness The patient is a 70-year-old gentleman with a history of coronary artery disease having previously undergone both percutaneous and surgical revascularization. He was actually admitted to our medical center in early August with a visual disturbance eventually diagnosed as an occipital stroke. He was evaluated on 1 additional occasion after discharge for ocular symptoms believed to be related to his prior stroke. Patient states that he yesterday he did notice a bubble in his chest. This felt as if something was trying to push out from the inside. This occurred at rest but was extended in duration. The did not appear to be any other associated symptoms and eventually resolved. Early this morning the patient woke up due to his usual insomnia. Again, he started to notice this sensation of a bubble in his chest. He felt as if he may need to burp and attempted to burp in different positions. He took his blood pressure which was markedly elevated and subsequently began to have symptoms of right arm heaviness. He recognized this is a symptoms similar to that experienced prior to his initial revascularization. Based on the presence of this symptom in the persistent nature of his chest discomfort he proceeded to the emergency room for evaluation. He cannot recall a specific intervention which alleviated his symptoms. He feels as if his symptoms gradually resolved over several hours. Currently claims to be feeling well. Since his stroke earlier in the month he has been relatively sedentary. He claims to have lost 10 lb perhaps due to reduced intake of beer. Prior to his stroke he exercise quite vigorously most days of the week. This generally involve walking or using a stationary bike. He did not have symptoms associated with that activity. He did have some symptoms of fleeting arm discomfort late last year and underwent outpatient exercise testing. This was normal. Allergies Allergy/AdvReac Type Severity Reaction Status Date / Time Iodinated Contrast Media Allergy Intermediate Hives Verified 08/27/20 07:17 [Iodinated Contrast- Oral and IV Dye] iodine Allergy Unknown Verified 08/27/20 07:17 Penicillins AdvReac Unknown "not sure Verified 08/27/20 07:17 if he is allergic to it" Home Medications Medication Instructions Recorded Confirmed Type atorvastatin 40 mg tablet 40 mg PO HS tab 03/29/19 08/27/20 History benazepril 40 mg tablet 40 mg PO QAM tab 03/29/19 08/27/20 History metoprolol succinate 100 mg 100 mg PO QAM tab 03/29/19 08/27/20 History tablet,extended release 24 hr niacin 500 mg tablet,extended 500 mg PO HS #1 tab 03/29/19 08/27/20 History release clopidogrel 75 mg tablet 75 mg PO QAM tab 05/21/19 08/27/20 History nitroglycerin 0.4 mg sublingual 0.4 mg SL Q5M PRN #25 tab 06/03/20 08/27/20 Rx tablet aspirin 81 mg PO HS 08/09/20 08/27/20 History metoprolol succinate 50 mg PO DAILY 08/11/20 08/27/20 History Patient History Medical History CAD (coronary artery disease) S/P PR 2002 tx with one stent. S/P CABG 2007 [facility]. 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 Hx of small bowel obstruction NON SURGICAL INTERVENTION - 5 YR AGO Hyperlipidemia Hypertension Surgical History History of colonoscopy Hx of cardiac cath [facility] 2002; X1 STENT Hx of hand surgery RIGHT Hx of heart bypass surgery 3 VESSELS; [facility] 2007 Family History Mother , in her 90s of heart disease Family history of diabetes mellitus Heart disease Family/Other Family history of diabetes mellitus Father , age 85 of complications of hydrocephalus Diabetes Social History Smoking Status: Former smoker Years Smoked: 2; Number of Years Since Quit: 45; Second Hand Exposure: No; Hx Alcohol Use: Yes Alcohol type: beer Alcohol Intake Frequency Comment: 1-2 beers per week Hx Substance Use: No Preferred Language: Comoran Communication Ability: Effective 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 Other Information That Helps Us Care for You: No Feels Safe at Home: Yes Safety Concerns: Feels Safe At This Time Assistive Devices: Glasses Review of Systems Review of Systems: All systems reviewed & are unremarkable except as noted in HPI & below He admits to being under more stress recently. His son is going through a divorce and his has recently been diagnosed with breast cancer. Of course, he recently suffered a stroke. Physical Exam Physical Exam: The patient is alert and oriented. Mood and affect appeared normal. He answered all questions appropriately. HEENT: Pupils are equal and reactive to light and accommodation. Extraocular movements are intact. The sclerae are anicteric. Neuro: Nonfocal Neck: Patient's neck is supple. He has palpable carotid pulses bilaterally without bruits on auscultation. There is no evidence of jugular venous distention. The thyroid is not enlarged. Lungs: Clear to auscultation bilaterally. He has good air movement without use of accessory muscles. No rales wheezes or rhonchi. Cardiac: Heart demonstrates a regular rate and rhythm. Normal S1 and S2. No murmurs on examination. Pulses: The patient has palpable radial pulses bilaterally that are equal in intensity Extremities: There was no evidence of hypoperfusion. There is no cyanosis or clubbing. There is no edema. Skin: I did not appreciate any rashes on examination today. Results & Data ([facility]) Vital Signs (Past 12 Hours) Vital Signs Temp Pulse Pulse Pulse Resp BP BP 08/27/20 15:00 36.7 C 61 18 130/71 08/27/20 12:25 69 08/27/20 11:48 37.1 C 63 16 149/81 H 08/27/20 10:31 68 12 138/73 08/27/20 10:30 67 08/27/20 10:04 75 08/27/20 09:31 68 08/27/20 09:30 68 12 162/82 H 08/27/20 09:01 73 12 08/27/20 09:00 74 156/76 H 08/27/20 08:31 71 14 08/27/20 08:30 69 16 158/84 H 08/27/20 08:13 160/80 H 08/27/20 08:01 72 11 L 08/27/20 08:00 76 17 168/88 H 08/27/20 07:30 75 17 08/27/20 07:24 71 12 08/27/20 06:57 69 16 194/89 H 08/27/20 06:46 36.6 C 78 18 Pulse Ox 08/27/20 15:00 96 08/27/20 12:25 08/27/20 11:48 95 08/27/20 10:31 08/27/20 10:30 08/27/20 10:04 92 08/27/20 09:31 08/27/20 09:30 08/27/20 09:01 08/27/20 09:00 08/27/20 08:31 08/27/20 08:30 08/27/20 08:13 08/27/20 08:01 97 08/27/20 08:00 96 08/27/20 07:30 98 08/27/20 07:24 08/27/20 06:57 98 08/27/20 06:46 97 Laboratory Results Abnormal Lab Results 08/27/20 08/27/20 08/27/20 07:00 07:00 07:00 WBC 5.43 RBC 5.28 Hgb 17.5 Hct 49.2 MCV 93.2 MCH 33.1 MCHC 35.6 RDW Std Deviation 42.3 RDW Coeff of Eleonora 12.4 Plt Count 164 MPV 10.2 Immature Gran % (Auto) 0.2 Neut % (Auto) 64.2 Lymph % (Auto) 25.4 [place] % (Auto) 8.7 Eos % (Auto) 1.1 Baso % (Auto) 0.4 Neut # (Auto) 3.49 Lymph # (Auto) 1.38 [place] # (Auto) 0.47 Eos # (Auto) 0.06 Baso # (Auto) 0.02 Immature Gran # (Auto) 0.01 PT 10.5 INR 1.0 APTT 24.8 PTT Ratio 0.9 Sodium 141 Potassium 3.7 Chloride 110 H Carbon Dioxide 24 Anion Gap 7.0 BUN 24 H Creatinine 1.39 Est Cr Clr Drug Dosing 47.5 Est GFR ( Amer) 59.5 Est GFR (Non-Af Amer) 51.3 BUN/Creatinine Ratio 17.2 Glucose 121 H Calcium 9.1 Total Bilirubin 1.3 H AST 34 ALT 55 Alkaline Phosphatase 78 Total Creatine Kinase 94 CK-MB (CK-2) 1.3 CK/CKMB % Calc 1.4 Troponin I 0.041 Total Protein 7.5 Albumin 4.2 Globulin 3.3 Albumin/Globulin Ratio 1.3 COVID-19 Eval Order SARS-CoV-2, RNA, NAAT 08/27/20 08/27/20 08/27/20 07:50 07:50 09:39 WBC RBC Hgb Hct MCV MCH MCHC RDW Std Deviation RDW Coeff of Eleonora Plt Count MPV Immature Gran % (Auto) Neut % (Auto) Lymph % (Auto) [place] % (Auto) Eos % (Auto) Baso % (Auto) Neut # (Auto) Lymph # (Auto) [place] # (Auto) Eos # (Auto) Baso # (Auto) Immature Gran # (Auto) PT INR APTT PTT Ratio Sodium Potassium Chloride Carbon Dioxide Anion Gap BUN Creatinine Est Cr Clr Drug Dosing Est GFR ( Amer) Est GFR (Non-Af Amer) BUN/Creatinine Ratio Glucose Calcium Total Bilirubin AST ALT Alkaline Phosphatase Total Creatine Kinase CK-MB (CK-2) CK/CKMB % Calc Troponin I 0.038 Total Protein Albumin Globulin Albumin/Globulin Ratio COVID-19 Eval Order Covid19 IDNow atMLAC SARS-CoV-2, RNA, NAAT NEGATIVE 08/27/20 13:00 WBC RBC Hgb Hct MCV MCH MCHC RDW Std Deviation RDW Coeff of Eleonora Plt Count MPV Immature Gran % (Auto) Neut % (Auto) Lymph % (Auto) [place] % (Auto) Eos % (Auto) Baso % (Auto) Neut # (Auto) Lymph # (Auto) [place] # (Auto) Eos # (Auto) Baso # (Auto) Immature Gran # (Auto) PT INR APTT PTT Ratio Sodium Potassium Chloride Carbon Dioxide Anion Gap BUN Creatinine Est Cr Clr Drug Dosing Est GFR ( Amer) Est GFR (Non-Af Amer) BUN/Creatinine Ratio Glucose Calcium Total Bilirubin AST ALT Alkaline Phosphatase Total Creatine Kinase CK-MB (CK-2) CK/CKMB % Calc Troponin I 0.038 Total Protein Albumin Globulin Albumin/Globulin Ratio COVID-19 Eval Order SARS-CoV-2, RNA, NAAT Diagnostic Findings Chest x-ray obtained today did not reveal any acute Cardiopulmonary process. Echocardiogram obtained 05/22/2020 did not reveal any evidence of inducible ischemia. Patient exercised for 10 minutes without symptoms. PG Care Time/CCT Total # of Minutes Spent Total Time Spent with Patient: Total time spent is greater than 50% in coordination of care (as documented) at patient's floor/unit and/or counseling patient: Coding Level of Care Code 33048 OBS Care - Level 3 Diagnoses Chest pain R07.9 Hypertension I10 CAD (coronary artery disease) I25.10
[2020-08-27] MEDS ORDERED: NIACIN EXTENDED REL 500 MG TABCR PO SCH (21:00)
[2020-08-27] MEDS ORDERED: ATORVASTATIN 40 MG TAB PO SCH (21:00)
[2020-08-27] MEDS ORDERED: ASPIRIN 81 MG ECTAB PO SCH (21:00)
[2020-08-27] MEDS ORDERED: METOPROLOL SUCC 50MG EXT REL TAB PO SCH (21:00)
[2020-08-27] MEDS ORDERED: MELATONIN 3 MG TAB PO PRN (23:14)
[2020-08-27] MEDS ORDERED: MELATONIN 3 MG TAB PO ONE (23:24)
--- NOTE | 2020-08-28 06:56 | Electroencephalogram ---
EEG Procedure Note Date of Service August 28, 2020 Start / End Times Start Time: 545 End Time: 605 Referring Physician Yesy Haskins PA-C History 70-year-old with left occipital stroke August 08 and unusual visual flickering August 11, possible occipital seizures Home Medication List Medication Instructions Recorded Confirmed Type atorvastatin 40 mg tablet 40 mg PO HS tab 03/29/19 08/27/20 History benazepril 40 mg tablet 40 mg PO QAM tab 03/29/19 08/27/20 History metoprolol succinate 100 mg 100 mg PO QAM tab 03/29/19 08/27/20 History tablet,extended release 24 hr niacin 500 mg tablet,extended 500 mg PO HS #1 tab 03/29/19 08/27/20 History release clopidogrel 75 mg tablet 75 mg PO QAM tab 05/21/19 08/27/20 History nitroglycerin 0.4 mg sublingual 0.4 mg SL Q5M PRN #25 tab 06/03/20 08/27/20 Rx tablet aspirin 81 mg PO HS 08/09/20 08/27/20 History metoprolol succinate 50 mg PO DAILY 08/11/20 08/27/20 History amlodipine [Norvasc] 5 mg PO QAM #30 tab 08/28/20 Rx pantoprazole 40 mg PO QAM #30 tab 08/28/20 Rx Inpatient Medication List Aspirin (Aspirin 81 Mg Ectab) 81 mg PO HS FELIZ Stop: 09/26/20 20:59 Last Admin: 08/27/20 20:36 Dose: 81 mg Documented by: [id number] Atorvastatin Calcium (Atorvastatin 40 Mg Tab) 40 mg PO HS FELIZ Stop: 09/26/20 20:59 Last Admin: 08/27/20 20:36 Dose: 40 mg Documented by: [id number] Enoxaparin Sodium (Enoxaparin Inj 40 Mg/0.4 Ml Syr) 40 mg SQ QAM FELIZ Stop: 09/26/20 14:59 Last Admin: 08/27/20 15:48 Dose: 40 mg Documented by: [id number] Metoprolol Succinate (Metoprolol Succ 50mg Ext Rel Tab) 50 mg PO HS FELIZ Stop: 09/26/20 20:59 Last Admin: 08/27/20 20:36 Dose: 50 mg Documented by: [id number] Niacin (Niacin Extended Rel 500 Mg Tabcr) 500 mg PO HS FELIZ Stop: 09/26/20 20:59 Last Admin: 08/27/20 20:36 Dose: 500 mg Documented by: [id number] Discontinued Medications Al Hydrox/Mg Hydrox/Simethicone (Gi Cocktail Ed Use) 1 dose PO ONE ONE Stop: 08/27/20 08:20 Last Admin: 08/27/20 08:44 Dose: 1 dose Documented by: [id number] Amlodipine Besylate (Amlodipine Besylate 5 Mg Tab) 5 mg PO NOW ONE Stop: 08/27/20 13:01 Last Admin: 08/27/20 12:58 Dose: 5 mg Documented by: [id number] Aspirin (Aspirin Chew 324 Mg) 324 mg PO NOW STA Stop: 08/27/20 07:47 Last Admin: 08/27/20 07:57 Dose: 324 mg Documented by: [id number] Famotidine (Famotidine 40 Mg Tablet) 40 mg PO NOW ONE Stop: 08/27/20 08:20 Last Admin: 08/27/20 09:36 Dose: 40 mg Documented by: [id number] Sodium Chloride (Nss) 500 mls @ 80 mls/hr IV .Q6H15M FELIZ Stop: 08/27/20 20:59 Last Infusion: 08/27/20 21:27 Dose: 0 mls/hr Documented by: [id number] Admin: 08/27/20 15:03 Dose: 80 mls/hr Documented by: [id number] Lorazepam (Lorazepam 1 Mg Tab) 0.5 mg SL NOW STA Stop: 08/27/20 07:13 Last Admin: 08/27/20 07:58 Dose: 0.5 mg Documented by: [id number] Melatonin (Melatonin 3 Mg Tab) Confirm Administered Dose 3 mg PO .STK-MED ONE Stop: 08/27/20 23:25 Last Admin: 08/27/20 23:25 Dose: 3 mg Documented by: [id number] Pantoprazole Sodium (Pantoprazole 40 Mg Tab) 40 mg PO NOW ONE Stop: 08/27/20 13:01 Last Admin: 08/27/20 12:58 Dose: 40 mg Documented by: [id number] Sucralfate (Sucralfate 1 Gm Tab) 1 gm PO NOW STA Stop: 08/27/20 08:20 Last Admin: 08/27/20 08:44 Dose: 1 gm Documented by: [id number] Description This is a 21 electrode EEG with a single channel dedicated to limited EKG. The electrodes were placed in accordance with the International 10-20 system. Interpretation The predominant background activity consists of a very well modulated 8 Hz activity, of up to 40 mV in amplitude,seen symmetrically distributed over the posterior head regions bilaterally. This activity attenuates nicely with eye- opening and other alerting procedures. Photic stimulation was performed and elicited no change in the background activity and no abnormal responses were seen. Hyperventilation was not performed. A minimal amount of muscle and movement artifact activity contaminated the recording and did not hinder interpretation to any significant degree. Throughout the recording, no focal abnormalities, abnormal slow activity, or potentially epileptogenic discharges are seen. The patient did not enter drowsiness or sleep.. In summary, this EEG was normal during wakefulness. No focal abnormalities, potentially epileptogenic discharges, or abnormal slow activity was seen. Clinical Correlation The abscence of potentially epileptogenic activity does not exclude a seizure disorder, since interictally, EEGs can be normal. Clinical correlation is required. 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
[2020-08-28 07:05] LABS: Hematocrit (blood only) 42.9 % (42-52); Hemoglobin 15.2 g/dL (14.0-18.0); Mean Corpuscular Hemoglobin 33.2 pg (25-34); Mean Corpuscular Hgb Conc 35.4 g/dL (32-36); Mean Corpuscular Volume 93.7 fL (80-100); Mean Platelet Volume 9.8 fL (7.4-10.4); Platelet Count 125 K/uL (130-400); RDW Coefficient of Variation 12.5 % (11.5-14.5); RDW Standard Deviation 42.2 fL (36.4-46.3); Red Blood Count 4.58 M/uL (4.7-6.1); White Blood Count 4.82 K/uL (4.8-10.8)
[2020-08-28 07:33] LABS: Albumin Level 3.5 gm/dl (3.4-5.0); Calcium 9.1 mg/dl (8.5-10.1); Creatinine Clr Calc Pharmacy 56.7 ml/min; Est GFR (Non-African American) 59.5; Potassium 3.9 mmol/L (3.5-5.1)
[2020-08-28 07:36] LABS: Albumin Globulin Ratio 1.3 (0.9-2); Bilirubin,Total 1.2 mg/dl (0.2-1); Globulin 2.8 gm/dl (2.5-4.0); Total Protein 6.3 gm/dl (6.4-8.2)
--- NOTE | 2020-08-28 08:01 | Neurology Consultation ---
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 There was a cutoff in the P2 segment of the left posterior cerebral artery. Clinically this results in a right homonymous hemianopsia. There are no other neurologic deficits. The patient has significant labile hypertension. Patient has flickering and flashing lights. There was a question of whether these represent occipital seizures. Although I cannot completely exclude this (and he states that the large flashing lights improve some with levetiracetam) I do not believe he is having occipital seizures. Off of levetiracetam he is not having significant flashing light episodes. Two EEGs, 1 August 20 and the other this morning were unremarkable. An MRI of the brain yesterday showed no new changes and expected evolution of the stroke. The right arm heaviness is nonspecific and improved now. Significant hypertension can create transient neurologic deficits. In addition the hypertension could be giving him the visual changes that he notices. the visual changes could be part of a natural "healing" process of the occipital lobe also. Recommendations: 1. hold anticonvulsants for now. 2. Continue 81 milligram aspirin +75 milligrams clopidogrel Daily. 3. Control blood pressure as you are doing, aiming for a mean arterial pressure of approximately 100. 4. follow up with Ophthalmology and his PCP soon as an outpatient. 5. Follow up with Neurology in the next 2 weeks Overall, I spent a total of 75 minutes with this case including review of records, review of MRI films, direct evaluation patient at bedside, and discussion of the case with the patient at bedside, RN at bedside, and Yesy Lees including differential diagnosis and treatment options. History of Present Illness Reason for Consultation: patient is a 70-year-old, who I was asked to see the request of Dr. Estevez, for neurologic consultation regarding previous stroke and other issues. Requesting Physician: Dr. Estevez Attending Physician: Vicky Estevez MD History of Present Illness The patient has a longstanding history of coronary artery disease, post stenting in 2002 and a 3 vessel coronary artery bypass graft in 2007. He is followed closely by Dr. Freire and has been on aspirin and Plavix for years. He has a history of hypertension on metoprolol and benazepril, and dyslipidemia on anupama rvastatin. he takes his medication regularly. The patient exercises regularly with walking I 1st saw this patient August 10 and he experienced a fairly large sized left occipital stroke resulting in a right homonymous hemianopsia of a dense nature. He had significant hypertension ( 192/121) in the emergency room which was controlled some in-hospital. CT angiography of the head and neck were unremarkable except for the left P2 segment of the posterior cerebral artery where there was a cut off. The rest of his neurologic examination was unremarkable and he did well and was discharged that day.He was discharged on aspirin and clopidogrel as before. He was to follow up with Ophthalmology. Patient returned to the emergency room August 11. That morning he woke up feeling reasonably well but around 10 30 in the morning and these flashing lights lasting about 60 seconds of white quality in his inferior lateral right visual aranda. It happened 2 or 3 times and he came to the emergency. Blood pressure was 186/89. He was seen by Dr. Rubalcava who felt the patient had occipital seizures and loaded him with 1 gram of levetiracetam. He was put on 1 gram levetiracetam twice daily and sent home. The patient felt that there was disjointed care and lack of follow-up and he ended up stopping the levetiracetam 1 week later. The patient believes that the flashing lights reduced s ignificantly in frequency and intensity and after stopping perhaps of come back a little mildly. In addition to the flashing lights he will have episodes of flickering lights almost every day lasting 1-10 minutes off in his lateral right visual field. He can feel that there is a large line or "wall" that moves some towards the left occasionally as well. These visual distortions come and go and most of the time he has no visual distortions. There are more frequent in bright light and LEs in a dark room. He never has any confusion, headache, weakness, numbness, or speech problems with these episodes. Patient had an outpatient EEG August 20 ( read on August [address] Carrion) which was normal. Patient returned to the emergency room August 27 because he felt some chest pressure and right upper extremity heaviness. This was reminiscent of his previous coronary artery disease episode. He arrived August 27 at 06:46 with a temperature 36.6, pulse 78, respiratory rate 18, blood pressure 194/89. CBC and Chem profile were unremarkable. Chest x-ray was unremarkable. MRI of the brain showed the old left occipital stroke as before with expected evolutionary changes of improvement over time. There were no new issues and no acute problems. I reviewed these films. This morning the patient feels that his left arm heaviness is about a 1-1/2 over 10. he does not have any chest pain or headache. He has no new weakness or numbness of the limbs. An EEG performed today between 5 and 6 o'clock in the morning was unremarkable with no potentially epileptogenic activity or focal abnormalities. Allergies Allergy/AdvReac Type Severity Reaction Status Date / Time Iodinated Contrast Media Allergy Intermediate Hives Verified 08/27/20 07:17 [Iodinated Contrast- Oral and IV Dye] iodine Allergy Unknown Verified 08/27/20 07:17 Penicillins AdvReac Unknown "not sure Verified 08/27/20 07:17 if he is allergic to it" Home Medications Medication Instructions Recorded Confirmed Type atorvastatin 40 mg tablet 40 mg PO HS tab 03/29/19 08/27/20 History benazepril 40 mg tablet 40 mg PO QAM tab 03/29/19 08/27/20 History metoprolol succinate 100 mg 100 mg PO QAM tab 03/29/19 08/27/20 History tablet,extended release 24 hr niacin 500 mg tablet,extended 500 mg PO HS #1 tab 03/29/19 08/27/20 History release clopidogrel 75 mg tablet 75 mg PO QAM tab 05/21/19 08/27/20 History nitroglycerin 0.4 mg sublingual 0.4 mg SL Q5M PRN #25 tab 06/03/20 08/27/20 Rx tablet aspirin 81 mg PO HS 08/09/20 08/27/20 History metoprolol succinate 50 mg PO DAILY 08/11/20 08/27/20 History Patient History Medical History CAD (coronary artery disease) S/P OR 2002 tx with one stent. S/P CABG 2007 [facility]. 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 Hx of small bowel obstruction NON SURGICAL INTERVENTION - 5 YR AGO Hyperlipidemia Hypertension Surgical History History of colonoscopy Hx of cardiac cath [facility] 2002; X1 STENT Hx of hand surgery RIGHT Hx of heart bypass surgery 3 VESSELS; [facility] 2007 Family History Mother , in her 90s of heart disease Family history of diabetes mellitus Heart disease Family/Other Family history of diabetes mellitus Father , age 85 of complications of hydrocephalus Diabetes Social History Smoking Status: Former smoker Years Smoked: 2; Number of Years Since Quit: 45; Second Hand Exposure: No; Hx Alcohol Use: Yes Alcohol type: beer Alcohol Intake Frequency Comment: 1-2 beers per week Hx Substance Use: No Preferred Language: Pashto Communication Ability: Effective 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 Other Information That Helps Us Care for You: No Feels Safe at Home: Yes Safety Concerns: Feels Safe At This Time Assistive Devices: Glasses Review of Systems Constitutional: no fever, no fatigue and no weakness Eyes: + blind spots and + seeing flashes; no diplopia, no eye pain and no worsening vision Right homonymous hemianopsia Ear, Nose, Mouth, Throat: no ear pain, no tinnitus, no hearing loss, no dizziness, no hoarseness and no dysphagia Respiratory: no cough and no dyspnea Cardiovascular: no chest pain, no palpitations and no lightheadedness Gastrointestinal: no abdominal pain, no nausea and no vomiting Genitourinary: no dysuria and no urinary incontinence Musculoskeletal: no back pain, no neck pain, no radicular pain, no joint pain and no myalgia Integumentary: no rash and no lesions Neurologic: no gait abnormality, no localized weakness, no generalized weakness, no tingling, no numbness, no tremor(s), no abnormal movements, no headache(s), no abnormal speech, no confusion and no memory loss Psychiatric: no depression, no irritability, no anxiety, no difficulty concentrating, no confusion and no hallucinations Endocrine: no fatigue and no flushing Hematologic / Lymphatic: no easy bleeding and no easy bruising Allergy / Immunological: no urticaria and no problem reported Exam (Neuro) Physical Exam: The patient is right-handed. The patient is awake, alert, and attentive. Speech is normal without any aphasia or dysarthria. he can name objects, repeat phrases, and has normal spontaneous speech. Mentation and thought processes are intact, with orientation to person, place and time, and normal fund of knowledge. Attention and concentration are normal. Mood and affect are normal and appropriate. General appearance and grooming are normal. Short and long-term memory are intact. Pupils are 4 mm bilaterally and reactive to light. Extraocular eye muscles are intact without nystagmus. patient has a rather dense right homonymous hemianopsia as before. There are no deficits to sensation in the face in all 3 distributions of the fifth cranial nerve bilaterally. Corneal reflexes are positive bilaterally. Facial strength and symmetry was normal bilaterally. Hearing seems normal to whisper and finger rub bilaterally. Palate moves well without asymmetry. There is normal sternocleidomastoid and trapezius (shoulder shrug) strength bilaterally. Tongue is midline with good strength bilaterally. Neck has a full range of motion without discomfort. There are no cervical bruits bilaterally. There are no cranial or ocular bruits. Gait is Not tested but stance sitting up in bed is normal.. With outstretched arms there is no drift. There are no resting, postural, or action tremors. There is no ataxia with finger to nose testing. There is good facility in the hands. No other abnormal involuntary movements are noted. Motor strength is 5/5 diffusely in the arms bilaterally including deltoids, biceps, triceps, brachioradialis, wrist flexors and extensors, riprap placing supervisor, and intrin sic hand muscles. Motor strength is 5/5 diffusely in the legs bilaterally including hip flexors, quadriceps, hamstrings, gastrocnemius, tibialis anterior, tibialis posterior, and Peroneii muscles. Toe extensors are normal and there is good bulk in the extensor digitorum brevis muscles bilaterally. The limbs have good tone without rigidity or spasticity. There is no atrophy noted in the muscles. Muscle bulk is normal, there is no tenderness to palpation, no myotonia to percussion, and no fasciculations seen. Sensory examination is intact to touch and pin throughout all 4 limbs diffusely. Reflexes are 2/4 in the biceps, triceps, brachioradialis, quadriceps, and Achilles tendons bilaterally. There is no clonus bilaterally. Toes are downgoing with plantar stimulation bilaterally. Peripheral pulses are present and of normal quality distally in all 4 limbs. There is no peripheral edema noted in the limbs. 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
--- NOTE | 2020-08-28 08:27 | Hospitalist Progress Note ---
Date of Service August 28, 2020 Assessment & Plan (1) Arm heaviness: * concerning given hx of anginal equivalent with right arm heaviness requiring CABG in 2008; ECG without any ischemia * Had recent normal stress test in 05/2020 after having seemingly similar symptoms * some of the chest pressure may been related to dyspepsia as it was relieved with GI cocktail and Pepcid in the ER * recently started on Keppra 1gm BID for post-CVA seizures/visual changes during ER visit on Aug 11 -- ? Asthenia/elevated BP effects from medications * Obs tele r/o ACS * Serial troponins * Weights * Intake & Output * Cardiology consulted * Will obtain CT Head given occipital headache (if negative will start Lovenox for DVT proph) * Neurology consulted -- recent seizure like activity and was d/c on Keppra from ER on 08/11 but only took for 8 days and had no follow up or continuation of medications. Appreciate assistance * Tylenol prn headache * Continue on Protonix here * Continue aspirin, Plavix, atorvastatin, metoprolol Previous A1c 5.3, Lipid panel acceptable (2) Hypertension: * Chronic, but with hypertensive urgency upon admission with blood pressure 206 systolic at home in the setting of right upper extremity heaviness * Blood pressures improved upon arrival but still elevated * Elevated 160/80 but did not take AM medications * Continue metoprolol 100mg AM/50mg QHS, benazepril 40mg * Start 5mg amlodipine and will continue daily (mild headache and elevated BPs)- this is also an antianginal * Continue to monitor (3) Hyperlipidemia: * Chronic. * Continue atorvastatin 40mg daily (4) CAD (coronary artery disease): * Hx of CABG 2008 with anginal equivalent of right arm heaviness -- follows with Dr. 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 Was evaluated and seen by Neurology and started on keppra 1gm PO BID and to have outpatient EEG and f/u at the end of September * EEG ordered to look for seizure activity * Appreciate neurology consultation (7) Headache: * Mild-- suspect related to elevated BPs * Tylenol prn * Control blood pressure as above (8) Epigastric discomfort: * Possible some symptoms related to reflux given improvement with GI cocktail, sucralfate and Pepcid * Will start on protonix daily, continue at discharge * Continue to monitor (9) DVT prophylaxis: * SCDs * If Head CT negative, will add Lovenox SQ Admission and Anticipated Discharge Date Admission Date: August 27, 2020 Results & Data Results & Data ([facility]) Vital Signs (Past 12 Hours) Vital Signs Temp Pulse Pulse Resp BP Pulse Ox 08/28/20 06:34 36.4 C L 50 L 18 129/78 96 08/28/20 03:33 36.6 C 56 L 16 131/70 93 08/27/20 23:07 36.6 C 59 L 20 125/66 96 08/27/20 22:20 58 L Laboratory Results 08/28/20 08/28/20 08/27/20 Range/Units 06:57 06:57 18:56 WBC 4.82 (4.8-10.8) K/uL RBC 4.58 L (4.7-6.1) M/uL Hgb 15.2 (14.0-18.0) g/dL Hct 42.9 (42-52) % MCV 93.7 (80-100) fL MCH 33.2 (25-34) pg MCHC 35.4 (32-36) g/dL RDW Std Deviation 42.2 (36.4-46.3) fL RDW Coeff of Eleonora 12.5 (11.5-14.5) % Plt Count 125 L (130-400) K/uL MPV 9.8 (7.4-10.4) fL Sodium 141 (136-145) mmol/L Potassium 3.9 (3.5-5.1) mmol/L Chloride 110 H (98-107) mmol/L Carbon Dioxide 27 (21-32) mmol/L Anion Gap 5.0 (3-11) BUN 20 H (7-18) mg/dl Creatinine 1.23 (0.6-1.4) mg/dl Est Cr Clr Drug Dosing 56.7 ml/min Est GFR ( Amer) 69.0 Est GFR (Non-Af Amer) 59.5 BUN/Creatinine Ratio 16.0 (10-20) Glucose 103 H (70-99) mg/dl Calcium 9.1 (8.5-10.1) mg/dl Total Bilirubin 1.2 H (0.2-1) mg/dl AST 22 (15-37) U/L ALT 42 (12-78) U/L Alkaline Phosphatase 61 (45-117) U/L Troponin I 0.034 (0-0.045) ng/ml Total Protein 6.3 L (6.4-8.2) gm/dl Albumin 3.5 (3.4-5.0) gm/dl Globulin 2.8 (2.5-4.0) gm/dl Albumin/Globulin Ratio 1.3 (0.9-2) 08/27/20 08/27/20 Range/Units 13:00 09:39 WBC (4.8-10.8) K/uL RBC (4.7-6.1) M/uL Hgb (14.0-18.0) g/dL Hct (42-52) % MCV (80-100) fL MCH (25-34) pg MCHC (32-36) g/dL RDW Std Deviation (36.4-46.3) fL RDW Coeff of Eleonora (11.5-14.5) % Plt Count (130-400) K/uL MPV (7.4-10.4) fL Sodium (136-145) mmol/L Potassium (3.5-5.1) mmol/L Chloride (98-107) mmol/L Carbon Dioxide (21-32) mmol/L Anion Gap (3-11) BUN (7-18) mg/dl Creatinine (0.6-1.4) mg/dl Est Cr Clr Drug Dosing ml/min Est GFR ( Amer) Est GFR (Non-Af Amer) BUN/Creatinine Ratio (10-20) Glucose (70-99) mg/dl Calcium (8.5-10.1) mg/dl Total Bilirubin (0.2-1) mg/dl AST (15-37) U/L ALT (12-78) U/L Alkaline Phosphatase (45-117) U/L Troponin I 0.038 0.038 (0-0.045) ng/ml Total Protein (6.4-8.2) gm/dl Albumin (3.4-5.0) gm/dl Globulin (2.5-4.0) gm/dl Albumin/Globulin Ratio (0.9-2) PG Care Time/CCT Total # of Minutes Spent Total Time Spent with Patient: Total time spent is greater than 50% in coordination of care (as documented) at patient's floor/unit and/or counseling patient: Coding Diagnoses Arm heaviness R29.898 Hypertension I10 Hypertension type: unspecified Hyperlipidemia E78.5 CAD (coronary artery disease) I25.10 Associated angina: angina presence unspecified Coronary Disease-Associated Artery/Lesion type: unspecified vessel or lesion type [place] vs. 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 transplanted heart: unspecified whether [place] or transplanted heart Qualified Code(s): I25.10 - Atherosclerotic heart disease of [place] coronary artery without angina pectoris
[2020-08-28] MEDS: ENOXAPARIN INJ 40 MG/0.4 ML SYR SQ SCH (08:28)
[2020-08-28] MEDS ORDERED: ENALAPRIL MALEATE 10 MG TAB PO SCH (09:00)
[2020-08-28] MEDS ORDERED: METOPROLOL SUCC 50MG EXT REL TAB PO SCH (09:00)
[2020-08-28] MEDS ORDERED: amLODIPine BESYLATE 5 MG TAB PO SCH (09:00)
[2020-08-28] MEDS ORDERED: CLOPIDOGREL BISULFATE 75 MG TAB PO SCH (09:00)
[2020-08-28] MEDS ORDERED: PANTOprazole 40 MG TAB PO SCH (09:00)
--- NOTE | 2020-08-28 09:48 | Cardiology Progress Note ---
Date of Service August 28, 2020 Assessment & Plan (1) Chest pain: Atypical. Extended in duration without evidence myocardial injury. I do not think this is likely a and acute coronary syndrome. I do not believe he needs any additional risk stratification. Continue aggressive secondary prevention with his standard outpatient medical regimen. (2) Hypertension: Amlodipine started. He had some concerns about symptoms of orthostatic hypotension on his current medical regimen. We will need to monitor him closely for side effects of amlodipine. (3) CAD (coronary artery disease): Continue dual anti-platelet therapy, metoprolol succinate and high-dose atorvastatin. I think he would be safe to discharge today from a cardiac standpoint. He is scheduled follow-up in the cardiology clinic tomorrow. Admission and Anticipated Discharge Date Admission Date: August 27, 2020 Subjective This morning patient claims to be feeling well. He was able to sleep well last evening. He has not had recurrence of his arm discomfort. No other chest pains. He has been ambulatory around the [place] without symptoms. Review of Systems Review of Systems: Per HPI Physical Exam Physical Exam: The patient is alert and oriented. Mood and affect appeared normal. He answered all questions appropriately. HEENT: Sclerae are anicteric Neck: Patient's neck is supple. Lungs: Normal respiratory effort Extremities: There was no evidence of hypoperfusion. There is no cyanosis or clubbing. There is no edema. Skin: I did not appreciate any rashes on examination today. Results & Data ([facility]) Vital Signs (Past 12 Hours) Vital Signs Temp Pulse Pulse Resp BP Pulse Ox 08/28/20 06:34 36.4 C L 50 L 18 129/78 96 08/28/20 03:33 36.6 C 56 L 16 131/70 93 08/27/20 23:07 36.6 C 59 L 20 125/66 96 08/27/20 22:20 58 L Laboratory Results Abnormal Lab Results 08/27/20 08/27/20 08/27/20 09:39 13:00 18:56 WBC RBC Hgb Hct MCV MCH MCHC RDW Std Deviation RDW Coeff of Eleonora Plt Count MPV Sodium Potassium Chloride Carbon Dioxide Anion Gap BUN Creatinine Est Cr Clr Drug Dosing Est GFR ( Amer) Est GFR (Non-Af Amer) BUN/Creatinine Ratio Glucose Calcium Total Bilirubin AST ALT Alkaline Phosphatase Troponin I 0.038 0.038 0.034 Total Protein Albumin Globulin Albumin/Globulin Ratio 08/28/20 08/28/20 06:57 06:57 WBC 4.82 RBC 4.58 L Hgb 15.2 Hct 42.9 MCV 93.7 MCH 33.2 MCHC 35.4 RDW Std Deviation 42.2 RDW Coeff of Eleonora 12.5 Plt Count 125 L MPV 9.8 Sodium 141 Potassium 3.9 Chloride 110 H Carbon Dioxide 27 Anion Gap 5.0 BUN 20 H Creatinine 1.23 Est Cr Clr Drug Dosing 56.7 Est GFR ( Amer) 69.0 Est GFR (Non-Af Amer) 59.5 BUN/Creatinine Ratio 16.0 Glucose 103 H Calcium 9.1 Total Bilirubin 1.2 H AST 22 ALT 42 Alkaline Phosphatase 61 Troponin I Total Protein 6.3 L Albumin 3.5 Globulin 2.8 Albumin/Globulin Ratio 1.3 PG Care Time/CCT Total # of Minutes Spent Total Time Spent with Patient: Total time spent is greater than 50% in coordination of care (as documented) at patient's floor/unit and/or counseling patient: Coding Level of Care Code 00892 Subseq Obs Care Lvl 2 Diagnoses Chest pain R07.9 Hypertension I10 Hypertension type: unspecified CAD (coronary artery disease) I25.10 Associated angina: angina presence unspecified Coronary Disease-Associated Artery/Lesion type: unspecified vessel or lesion type [place] vs. transplanted heart: unspecified whether [place] or transplanted heart (1) Hypertension Hypertension type: unspecified Qualified Code(s): I10 - Essential (primary) hypertension (2) CAD (coronary artery disease) Associated angina: angina presence unspecified Coronary Disease-Associated Artery/Lesion type: unspecified vessel or lesion type [place] vs. transplanted heart: unspecified whether [place] or transplanted heart Qualified Code(s): I25.10 - Atherosclerotic heart disease of [place] coronary artery without angina pectoris
[2020-08-28] MEDS ORDERED: GLYCERIN ADULT 12 SUPP/BOX SUPP PR PRN (10:35)
--- NOTE | 2020-08-28 10:51 | Discharge Summary ---
Date of Service August 28, 2020 Admission HPI Per Admitting Provider 70 year old male with PMHx significant for recent occipital stroke Aug 08 2020 felt to be ischemic (on DAPT), HTN, HLD, CABG (2008) who presented to the emergency department with right arm heaviness and chest pressure. This is more concerning given previous symptoms of right arm heaviness resulting in need for CABG in 2008 and he woke up this morning and had continued right arm heaviness/numbness. Nothing made this better or worse. He did take his Plavix this morning as well as his metoprolol and benazepril. Presented to the ER on Aug 11 for floaters and flashing "burning lights" and was started on Keppra 1gm BID for a total of 8 days and had nothing since that or follow up from that time. He notes that adult figures and embers to diagonal region of his right eye had improved with the Keppra but that he hasn't had any in several days. 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 Freire. He said Tuesday he hadn't been feeling great and had some discomfort in his chest and throat that felt like he needed to burp with an associated pressure. and fullness but denies any difficulty or pain with swallowing. Has been changing his diet to lose 10 lb since the stroke and endorses more fiber in his diet. Symptoms with his CABG (2008 with prior MS in ) had R arm heaviness/numbness which did not start until last evening. 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 Slept until 4am and watched some [employer]. At 5am he had some discomfort in his chest that felt like it he was being pushed from the inside out. He checked his blood pressure, which he does periodically, and had been e levated to 206/106 and then repeat was 200/109 with associated right arm heaviness. On the trip into the ER he states he had some sweatiness to his palms and had to roll the window down for fresh air as he felt "confined". Pressure symptoms no longer present at this time since administration of GI cocktail and BP came down. Mild dull headache occipital region. No history of headache or headaches like this. No lower extremity weakness but does endorse some gait instability at home still. Lives in [place] with his . Went home at discharge from previous stroke earlier this month. Of note, he recently put in notice to [facility] for his care home and recently was diagnosed with breast cancer and will be having surgery next month which could also be adding to his anxiety/stress as he notes he "doesn't seem anxious on the outside but on the inside I keep moving". No fever, chills, abdominal pain, nausea, vomiting, dysuria at this time. ER Course: ASA 324mg, Lorazepam 0.5mg PO SL, Carafate, Pepcid and GI cocktail EKG NSR Trop 0.041 CXR without acute process Admission Exam Per Admitting Provider Constitutional: WD/WN, vitals as above comfortable; no acute distress Eyes: + anicteric sclerae R eye -- lateral field cut ENMT: Ears: no hearing impairment and no external ear abnormality Neck: normal visual inspection and trachea midline Respiratory: normal respiratory effort, lungs clear to auscultation Cardiovascular: RRR, no murmur, no edema Chest (Breasts): Additional Comments: incisional scar from prior CABG Gastrointestinal (Abdomen): normal bowel sounds, soft, nontender, no hepatosplenomegaly Musculoskeletal: no cyanosis or clubbing, extremities motor strength 5/5 Skin: warm ,dry Neurologic: CN's II-XI intact bilaterally and deep tendon reflexes 2+ bilaterally [id number] intact bilaterally pierce-heel intact bilaterally strength 5/5 no pronator drift Psychiatric: Orientation: alert and oriented x 3 Genitourinary: no zheng Lymphatic: no cervical or axillary lymphadenopathy Principal Diagnosis HTN urgency, R arm heaviness Discharge Exam Constitutional WD/WN, vitals as above comfortable; no acute distress Eyes + anicteric sclerae right eye -- lateral field cut ENMT Ears: no hearing impairment and no external ear abnormality Neck normal visual inspection and trachea midline Respiratory normal respiratory effort, lungs clear to auscultation Cardiovascular RRR, no murmur, no edema Gastrointestinal (Abdomen) normal bowel sounds, soft, nontender, no hepatosplenomegaly Musculoskeletal no cyanosis or clubbing, extremities motor strength 5/5 Neurologic CN's II-XI intact bilaterally and deep tendon reflexes 2+ bilaterally Psychiatric Orientation: alert and oriented x 3 Lymphatic no cervical or axillary lymphadenopathy Discharge Data Allergies Allergy/AdvReac Type Severity Reaction Status Date / Time Iodinated Contrast Media Allergy Intermediate Hives Verified 08/27/20 07:17 [Iodinated Contrast- Oral and IV Dye] iodine Allergy Unknown Verified 08/27/20 07:17 Penicillins AdvReac Unknown "not sure Verified 08/27/20 07:17 if he is allergic to it" Consultations 08/27/20 07:45 Consult Cardiology Stat 08/27/20 08:21 ED Decision to Admit Stat 08/27/20 12:23 Consult Neurology Routine Ordered Studies 08/27/20 10:16 MR brain wo con Stat CXR Hospital Course (1) Arm heaviness: Presented with right arm heaviness, concerning given hx of anginal equivalent with right arm heaviness requiring CABG in 2008; ECG without any ischemia Had recent normal stress test in 05/2020 after having seemingly similar symptoms Trended troponins -- elevated to 0.041 on admission with trend down 0.038 and same on repeat Cardiology consulted -- agreed to get better BP control and does not feel cardiac etiology. 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 EEG normal as well as normal EEG from 08/20 (read later and not initially available) Not completely able to rule out occipital seizure activity, but does not feel this is the case and would not continue Keppra at discharge. Follow up with Neurology in next couple of weeks -- appointement scheduled for him BPs initially elevated to 200s/100s prior to admission and felt that possible that these elevations could be culprit of symptoms. Started on amlodipine 5mg daily and BPs improved to 129/78 and 144/68 today. Follow up with Dr. Freire scheduled for 08/29. Continued amlodipine at discharge. Previous A1c 5.3 earlier this month during acute CVA Lipid panel acceptable Continued aspirin, Plavix, atorvastatin, metoprolol Scheduled follow up with Ophthalmology and Dr. Jane as well. (2) Hypertension: Chronic, but with hypertensive urgency upon admission with blood pressure 206 systolic at home in the setting of right upper extremity heaviness Blood pressures improved upon arrival but still elevated but improved with addition of amlodipine 5mg daily Continued metoprolol 100mg AM/50mg QHS, benazepril 40mg Follow up with Cardiology (3) Hyperlipidemia: Continued atorvastatin 40mg daily (4) CAD (coronary artery disease): Hx of CABG 2008 with anginal equivalent of right arm heaviness -- follows with Dr. 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 Was evaluated and seen by Neurology and started on keppra 1gm PO BID and to have outpatient EEG and f/u at the end of September EEG ordered to look for seizure activity Neurology consultation as above (7) Headache: Mild on admission, suspect related to elevated BPs Tylenol prn Control blood pressure as above and no further headache reported (8) Epigastric discomfort: Possible some symptoms related to reflux given improvement with GI cocktail, sucralfate and Pepcid Will start on protonix daily, continued at discharge (9) DVT prophylaxis: SCDs Lovenox SQ while inpatient Discharged home. To discuss with Dr. Jane about lorazepam vs starting his prozac with his increased stressors related to his own medical issues as well as now de aling with breast ca issues. Total Time Total Time Spent Total Time Spent (In Minutes): 60 Discharge Plan Discharge Items Patient Disposition: Home - Self-Care Reason For Visit: RIGHT ARM HEAVINESS Discharge Diagnosis: Hypertension, R arm heaviness Goals: You have been hospitalized for an acute medical problem. During your stay at [facility], we have made an effort to correct the problem that brought you to the hospital while keeping you as comfortable as possible. Medications were used to bring your condition under control and your discharge instructions will include directions for any medications you should take after leaving the hospital. Please make sure you see your Primary Care Provider as part of your follow up plan. Activity: Resume your previous activity Non-emergency contact: Primary Care Provider, Ear Machine Operator, Neurologist and Flatwork Ironer Call non-emergency contact if: you have any medication questions, your symptoms worsen and your pain is not controlled Follow-up/Referrals: Henrry Ray MD [Physician] - 09/19/20 11:00 am Alexander Freire Jr, MD, [facility] [Physician] - 08/29/20 1:00 pm (08/29) Guille Jane DO [Primary Care Provider] - 09/01/20 1:50 pm Riccardo Tran MD [Physician] - 09/03/20 9:15 am Diet: Heart Healthy Addtl Attending Provider Instructions: You have been hospitalized for arm weakness/numbness and pressure concerning for cardiac or neurological etiology. MRI of your brain was performed and showed natural evolution of your stroke without any new findings. An EEG was performed to look for any seizure activity, and this was negative as well as previous EEG. It is not felt that you are having an occiptal seizure activity but it is not able to be completely ruled out at this time. Neurology was consulted and they do not feel you need to continue Keppra at this time but should have follow up in the next month to monitor your progress. It is felt that your labile blood pressures could be causing these symptoms and you were started on amlodipine for better blood pressure control and your pressures have been much better. This will be continued as 5mg by mouth daily. You were evaluated by cardiology during admission who felt you also should have better blood pressure control and they agree with addition of amlodipine as above. Troponins were checked and were not indicative of ischemia or damage at this time. You should continue to follow up with Dr. Freire tomorrow as previously scheduled for tomorrow. If your symptoms continue to be controlled with blood pressure control but you notice increased anxiety/depression related to stressors and medical issues, you can continue lorazepam as needed and may in the upcoming month or so, consider starting the Prozac as we discussed. You can choose to further discuss this with Dr. Jane at follow up appointment. You have also had appointments with Dr. Jane as well as Dr Tran from Ophthalmology. You are also being sent a prescription for Protonix to use daily to help with reflux type symptoms. Please keep these appointments as scheduled. Please return to the emergency department if you have any worsening of your symptoms, worsening flashes/shortness of breath, chest pain/pressure, or for any other symptoms that are concerning for you. It has been a pleasure being a part of the medical team providing for you while you have been in the hospital. Take care! Pending Studies at Discharge: No Stand-Alone Forms: My [facility] Medications and DC Order Prescriptions: New amlodipine [Norvasc] 5 mg Tablet 5 mg PO QAM Qty: 30 RF: 3 pantoprazole 40 mg Tablet,Delayed Release (Dr/Ec) 40 mg PO QAM Qty: 30 RF: 0 Continued nitroglycerin 0.4 mg tablet, sublingual 0.4 mg SL Q5M PRN (Reason: chest pain) Qty: 25 RF: 0 atorvastatin 40 mg tablet 40 mg PO HS RF: 0 niacin 500 mg tablet extended release 500 mg PO HS Qty: 1 RF: 0 benazepril 40 mg tablet 40 mg PO QAM RF: 0 metoprolol succinate 100 mg tablet extended release 24 hr 100 mg PO QAM RF: 0 clopidogrel 75 mg tablet 75 mg PO QAM RF: 0 metoprolol succinate 50 mg Tablet Extended Release 24 Hr 50 mg PO DAILY RF: 0 aspirin 81 mg Tablet,Delayed Release (Dr/Ec) 81 mg PO HS RF: 0 Discharge Orders: Discharge Order (Routine); Ordered 08/28/20 Ordered By: Yesy Forman/Other Patient Handouts: Stroke and Heart Disease, Symptoms of Stroke, Risk Factors for Stroke Admission Data Admit Date/Time: 08/27/20 09:56 Attending Provider: Vicky Estevez Admit Provider: Vicky Estevez Primary Care Provider: Guille Jane Other Providers: Shaun Rodrigues ; Dhiraj Sims ; Tiffany Carrion Other Interventions: Discharge Summary Assessment (RN) Last Done: 08/28/20 14:12 Supervising Physician Co-Signing Physician Notes PA Supervision Note: I personally saw and examined the patient. I verified all cortes points and agree with HARLEY Haskins with the following exceptions and/or additions: This patient is a 70-year-old male with history of CAD status post CABG, HTN, recent occipital stroke, who presents to the ER with chest pressure and right upper extremity heaviness with mild occipital headache and significantly elevated blood pressure to 206 systolic at home. It reminded him of his previous anginal symptoms in the past. He is also been having some ongoing flashes of light in the right peripheral field of vision after his occipital stroke and a right homonymous hemianopsia. He was placed on Keppra for 8 days but ran out and did not have follow-up with neurology in the office and therefore has not taken it for last 8 days. Doing very well on day of discharge, BPs controlled, no further symptoms like those that brought him to the hospital. Vitals reviewed Gen: AAOx3, NAD HEENT: Anicteric sclerae CV: RRR no mgr nl S1S2 Pulm: CTAB no wcr Abd: +BS soft NT ND no masses or hernias Ext: No edema, no calf tenderness Skin: No rashes, warm/dry Neuro: Full strength throughout Laboratory values reviewed, MRI brain and EEG reviewed 70-year-old male with history noted as above, here with hypertensive urgency, right upper extremity heaviness and chest pressure, recent occipital stroke. Much improved Ruled out for acute coronary syndrome Added amlodipine for improved blood pressure control which is helping dc to home on amlodipine, Protonix No keppra needed, f/u with Neuro Appreciate Cardio consultation Coding Level of Care Code 31889 OBS Care - Discharge Diagnoses Arm heaviness R29.898 Hypertension I10 Hypertension type: unspecified Hyperlipidemia E78.5 CAD (coronary artery disease) I25.10 Associated angina: angina presence unspecified Coronary Disease-Associated Artery/Lesion type: unspecified vessel or lesion type [place] vs. transplanted heart: unspecified whether [place] or transplanted heart Right homonymous hemianopsia due to recent cerebral infarction I69.398; H53.461 Visual changes H53.9 Headache R51.9 Epigastric discomfort R10.13 DVT prophylaxis Z29.9
--- NOTE | 2020-08-28 16:52 | Electrocardiogram Report ---
Test Reason : Blood Pressure : / mmHG Vent. Rate : 056 BPM Atrial Rate : 056 BPM P-R Int : 210 ms QRS Dur : 098 ms QT Int : 456 ms P-R-T Axes : 071 087 082 degrees QTc Int : 440 ms Sinus bradycardia with 1st degree A-V block Otherwise normal ECG When compared with ECG of 27-AUG-2020 08:10, No significant change was found Confirmed by Adán Rodrigues ([id number]) on 08/28/2020 4:52:26 PM Referred By: REFERRED SELF Confirmed By:Mic Rodrigues
== END 2020-08-28 15:10 | disposition home or self-care (01) ==
LOC: 2W 06:41 → ED 06:41 → 2W 10:46